=== PATIENT | female | born 1955 | race Caucasian/White ===

== ENCOUNTER 2024-09-30 20:07 | Inpatient (IN) ==
--- NOTE | 2024-09-30 20:16 | Emergency Department Note ---
Impression & Plan Syncope, Contusion of face, Fall ED Provider Note NAME: TOMMY HAYES AGE: 69 SEX: F : 1955 ARRIVES VIA: Ambulance INFORMANT: Patient, EMS ED PROVIDER(S): Twin Lara DO CHIEF COMPLAINT: Altered mental status HPI: The patient is a 69-year-old female who presented to the emergency department after an altered mental status. The patient was made a trauma alert. She was found to be with a head injury. She was covered in blood. Initially her significant other called 911 because he thought that she was in cardiac arrest. The patient was found on the floor in her home. It was an unwitnessed fall. It is difficult to obtain history as the patient is obtunded upon arrival. She reportedly does not take any blood thinners. ROS: See above HPI for pertinent positives & negatives. A total of 10 systems reviewed and were otherwise negative. PAST MEDICAL HISTORY: See Below PAST SURGICAL HISTORY: See Below FAMILY HISTORY: See Below SOCIAL HISTORY: See Below HOME MEDICATIONS: See Below ALLERGIES: See Below VITALS: See Below PHYSICAL EXAMINATION: GENERAL: The patient is awake to loud verbal commands. The patient follows commands intermittently and slowly. EYES: The conjunctivae are clear. The pupils are round and reactive. EARS, NOSE, MOUTH AND THROAT: The nose is without any evidence of any deformity. Periorbital ecchymosis was noted with small puncture wounds. No active bleeding was noted. NECK: The neck is nontender and supple. RESPIRATORY: Normal respiratory effort is noted there is no evidence of wheezing rhonchi or rales CARDIOVASCULAR: Regular rate and rhythm noted there no murmurs rubs or gallops normal S1 normal S2. GASTROINTESTINAL: The abdomen is soft. Abdomen is nontender. MUSCULOSKELETAL/EXTREMITIES: There is no evidence of gross deformity full range of motion is noted in the hips and shoulders. SKIN: There is no obvious evidence of any rash. There are no petechiae, pallor or cyanosis noted. NEUROLOGIC: Patient is awake to loud verbal commands. She answers questions intermittently. She is not oriented to place or situation. Strength is symmetric. MEDICAL DECISION MAKING: The patient is a 69-year-old female who presented to the emergency department after having a syncopal episode. History was somewhat limited as the patient arrived and she was somewhat confused. The patient had trauma noted to the left side of her face. I discussed the patient's laboratory and radiographic studies with her and her significant other. Further history was obtained from the significant other and he states that the patient has not been feeling well for the last few days. They recently returned from a trip. The patient had an episode of syncope where she fell striking the left side of her face. The patient was reevaluated multiple times. I discussed the patient's condition with the on-call [facility] hospitalist. They have agreed to evaluate the patient in the emergency department for further management and disposition. Triage Nursing notes reviewed. Prior medical records reviewed Vital Signs: reviewed and remarkable for no significant abnormalities Differential diagnosis: Fracture, dislocation, contusion, intra-abdominal, pneumothorax, intrathoracic, intracranial, neurologic, compartment syndrome, rhabdomyolysis, as well as other pathologies. ER treatment provided: See below Diagnostics interpreted by me: ECG: EKG was obtained in the emergency department. My interpretation is sinus bradycardia 59 bpm. PVCs were noted. Nonspecific ST depressions were also noted. This was compared to a tracing from July 08, 2021. The ectopy is new otherwise no changes noted. Cardiac Monitoring: An order was placed for continuous cardiac monitoring. The monitor shows a rate of 60 bpm with sinus rhythm. Laboratory studies: As stated above and show below. Imaging studies: See below. Radiographic imaging was reviewed by myself Consultation(s): I discussed this case with Dr. [facility] Past Med/Surg History Problem List (Updated 09/30/24 @ 22:07 by Twin Lara DO) Fall (Acute) Contusion of face (Acute) Syncope (Acute) Medical History Hypothyroidism Hyperlipidemia Family History Other Family history non-contributory Social History Smoking Status: Never smoker Feels Safe at Home: Yes Allergies Allergies Allergy/AdvReac Type Severity Reaction Status Date / Time No Known Allergies Allergy Unverified 07/08/21 20:10 Home Meds Home Medications Medication Instructions Recorded Confirmed atorvastatin 20 mg tablet 20 mg PO DAILY 07/08/21 09/30/24 citalopram 40 mg tablet 40 mg PO DAILY 07/08/21 09/30/24 levothyroxine 50 mcg tablet 50 mcg PO DAILY 07/08/21 09/30/24 (Synthroid) Results & Data (ED) Vital Signs Vital Signs - 24 hr 09/30/24 20:04 09/30/24 20:04 09/30/24 20:04 Temperature 36.6 C Temperature Source Oral Pulse Rate 61 Pulse Rate from SpO2 Sensor Respiratory Rate 16 Respiratory Effort / Characteristics Non-Labored Non-Labored Respiratory Depth Normal Normal Blood Pressure 114/48 L Blood Pressure Mean 70 Pulse Oximetry 98 Oxygen Delivery Method Room Air Room Air Oxygen Flow Rate Sepsis Recent Fever Within 48 Hours No Sepsis New/Unexplained Change in Mental Status No Sepsis Action Taken by Nursing No Action Required 09/30/24 20:04 09/30/24 20:11 09/30/24 20:11 Temperature 36.6 C Temperature Source Pulse Rate 58 L 61 Pulse Rate from SpO2 Sensor Respiratory Rate 16 Respiratory Effort / Characteristics Respiratory Depth Blood Pressure 114/48 L 114/48 L Blood Pressure Mean 73 Pulse Oximetry 98 Oxygen Delivery Method Room Air Oxygen Flow Rate 0 Sepsis Recent Fever Within 48 Hours Sepsis New/Unexplained Change in Mental Status Sepsis Action Taken by Nursing 09/30/24 20:11 09/30/24 20:12 09/30/24 20:12 Temperature Temperature Source Pulse Rate 60 Pulse Rate from SpO2 Sensor 60 Respiratory Rate 20 Respiratory Effort / Characteristics Respiratory Depth Blood Pressure 114/48 L Blood Pressure Mean 73 Pulse Oximetry 99 94 Oxygen Delivery Method Room Air Oxygen Flow Rate Sepsis Recent Fever Within 48 Hours Sepsis New/Unexplained Change in Mental Status Sepsis Action Taken by Nursing 09/30/24 20:21 09/30/24 20:24 09/30/24 20:46 Temperature Temperature Source Pulse Rate 59 L 57 L Pulse Rate from SpO2 Sensor 55 L 57 L Respiratory Rate 15 20 Respiratory Effort / Characteristics Respiratory Depth Blood Pressure 143/67 H Blood Pressure Mean 90 Pulse Oximetry 98 99 Oxygen Delivery Method Oxygen Flow Rate Sepsis Recent Fever Within 48 Hours Sepsis New/Unexplained Change in Mental Status Sepsis Action Taken by Nursing 09/30/24 21:00 09/30/24 21:00 09/30/24 21:06 Temperature Temperature Source Pulse Rate 57 L Pulse Rate from SpO2 Sensor 59 L Respiratory Rate 22 Respiratory Effort / Characteristics Respiratory Depth Blood Pressure 129/56 L 129/56 L Blood Pressure Mean 88 88 Pulse Oximetry 97 Oxygen Delivery Method Oxygen Flow Rate Sepsis Recent Fever Within 48 Hours Sepsis New/Unexplained Change in Mental Status Sepsis Action Taken by Nursing 09/30/24 21:18 09/30/24 21:21 09/30/24 21:24 Temperature Temperature Source Pulse Rate 57 L 53 L 51 L Pulse Rate from SpO2 Sensor 56 L 53 L 51 L Respiratory Rate 17 21 19 Respiratory Effort / Characteristics Respiratory Depth Blood Pressure Blood Pressure Mean Pulse Oximetry 98 97 97 Oxygen Delivery Method Oxygen Flow Rate Sepsis Recent Fever Within 48 Hours Sepsis New/Unexplained Change in Mental Status Sepsis Action Taken by Nursing 09/30/24 21:30 09/30/24 21:30 09/30/24 21:45 Temperature Temperature Source Pulse Rate 55 L Pulse Rate from SpO2 Sensor 55 L Respiratory Rate 21 Respiratory Effort / Characteristics Respiratory Depth Blood Pressure 131/66 131/66 Blood Pressure Mean 88 88 Pulse Oximetry 96 Oxygen Delivery Method Oxygen Flow Rate Sepsis Recent Fever Within 48 Hours Sepsis New/Unexplained Change in Mental Status Sepsis Action Taken by Nursing 09/30/24 21:51 09/30/24 22:00 09/30/24 22:00 Temperature Temperature Source Pulse Rate 56 L 56 L Pulse Rate from SpO2 Sensor 56 L 56 L Respiratory Rate 18 21 Respiratory Effort / Characteristics Non-Labored Respiratory Depth Normal Blood Pressure Blood Pressure Mean Pulse Oximetry 96 92 Oxygen Delivery Method Oxygen Flow Rate Sepsis Recent Fever Within 48 Hours Sepsis New/Unexplained Change in Mental Status Sepsis Action Taken by Nursing 09/30/24 22:01 09/30/24 22:01 09/30/24 22:12 Temperature Temperature Source Pulse Rate 60 Pulse Rate from SpO2 Sensor 58 L Respiratory Rate 19 Respiratory Effort / Characteristics Respiratory Depth Blood Pressure 101/59 L 101/59 L Blood Pressure Mean 84 84 Pulse Oximetry 95 Oxygen Delivery Method Oxygen Flow Rate Sepsis Recent Fever Within 48 Hours Sepsis New/Unexplained Change in Mental Status Sepsis Action Taken by Custodial Medications Current Medication List: was personally reviewed by me Laboratory Data Attestation: I reviewed the patient's lab results. 09/30/24 20:14 09/30/24 20:14 Lab Results 09/30/24 09/30/24 09/30/24 Range/Units 20:14 20:17 20:18 WBC 5.39 (4.8-10.8) K/ul RBC 3.66 L (4.20-5.40) M/uL Hgb 11.0 L (12.0-16.0) g/dl POC Hgb 10.5 L (12.0-16.0) g/dl Hct 32.9 L (37.0-47.0) % POC Hct 31 L (37-47) % MCV 89.9 (80.0-100.0) fL MCH 30.1 (25.0-34.0) pg MCHC 33.4 (32.0-36.0) g/dL RDW Std Deviation 41.8 (36.4-46.3) fL RDW Coeff of Jazmin 12.7 (11.5-14.5) % Plt Count 167 (130-400) K/uL MPV 10.7 (9.4-12.4) fL Immature Gran % (Auto) 0.4 % Neut % (Auto) 59.7 % Lymph % (Auto) 27.8 % [place] % (Auto) 10.0 % Eos % (Auto) 1.7 % Baso % (Auto) 0.4 % Neut # (Auto) 3.22 (1.40-6.50) K/uL Lymph # (Auto) 1.50 (1.20-3.40) K/uL [place] # (Auto) 0.54 (0.11-0.59) K/uL Eos # (Auto) 0.09 (0.00-0.50) K/uL Baso # (Auto) 0.02 (0.00-0.20) K/uL Immature Gran # (Auto) 0.02 (0.01-0.20) K/uL PT 10.4 (9.0-12.0) Seconds INR 1.0 (0.9-1.1) APTT 23 (21-31) Seconds PTT Ratio 0.9 POC Sodium 137 (135-144) mmol/L Sodium 136 (136-145) mmol/L POC Potassium 3.4 (3.3-5.0) mmol/L Potassium 3.5 (3.5-5.1) mmol/L POC Chloride 104 (101-112) mmol/L Chloride 105 (98-107) mmol/L Carbon Dioxide 25 (21-32) mmol/L POC Total CO2 21 L (24-31) mmol/L Anion Gap 6 (3-11) POC Anion Gap 17.0 (16-25) mmol/L POC BUN 15 (7-18) mg/dl BUN 18 (6-23) mg/dl Creatinine 1.08 (0.6-1.2) mg/dl POC Creatinine 1.1 (0.6-1.3) mg/dl Est Cr Clr Drug Dosing 41.9 ml/min eGFR 55.26 BUN/Creatinine Ratio 16.7 (10-20) Glucose 141 H (70-99(Fasting)) mg/dl POC Glucose (other) 135 H (70-99) mg/dl Calcium 9.1 (8.6-10.3) mg/dl POC Ioniz Calcium Rip 1.18 (1.12-1.32) mmol/l Total Bilirubin 0.6 (0.2-1.0) mg/dl AST 46 H (13-39) U/L ALT 39 (7-52) U/L Alkaline Phosphatase 45 (34-104) U/L Total Creatine Kinase 221 H (26-192) U/L Troponin I High Sens < 2.3 (0-14) pg/ml Total Protein 6.2 (6.0-8.3) gm/dl Albumin 3.9 (3.4-5.0) gm/dl Globulin 2.3 L (2.5-4.0) gm/dl Albumin/Globulin Ratio 1.7 (0.9-2) Lipase 17 (11-82) U/L Ethyl Alcohol mg/dL < 10.0 (<10.0) mg/dl Blood Type O Positive Antibody Screen NEGATIVE Administered Medications Discontinued Medications Ioversol (Optiray 320 100ml) 93 ml IV ONCE ONE Stop: 09/30/24 20:36 Last Admin: 09/30/24 20:35 Dose: 93 ml Documented By: OLIVIER Ondansetron HCl (Ondansetron Inj 2 Mg/Ml 2 Ml Vial) 4 mg IV NOW STA Stop: 09/30/24 20:13 Last Admin: 09/30/24 20:27 Dose: 4 mg Documented By: PITO Imaging Data Attestation: I personally reviewed and interpreted this imaging study as follows: My Impression: CT of the brain was obtained in the emergency department. My interpretation is no definite intracranial hemorrhage or mass effect, final report below. 1 view chest x-ray was obtained in the emergency department. My interpretation is no free air or definite infiltrate, final report below. Radiologist's Impression: Abdomen/Pelvis CT 09/30/24 20:12 Exam(s): CT ABDOMEN + PELVIS With Contrast IV Amt: 93 cc opti 320 EXAM: CT Abdomen and Pelvis With Intravenous Contrast CLINICAL HISTORY: Reason for exam: Trauma. TECHNIQUE: Axial computed tomography images of the abdomen and pelvis with intravenous contrast. CTDI is 14.22 mGy and DLP is 736.72 mGy-cm. Automated exposure control was utilized for the study. A dose lowering technique was utilized adhering to the principles of ALARA. CONTRAST: Patient received 93 cc opti 320 of IV contrast COMPARISON: 07/08/2021 FINDINGS: ABDOMEN: Liver: Unremarkable. Gallbladder and bile ducts: Unremarkable. Pancreas: Unremarkable. Spleen: Unremarkable. Adrenals: Unremarkable. Kidneys and ureters: Unremarkable. No obstructing stones. No hydronephrosis. Stomach and bowel: Excess colonic stool burden. PELVIS: Appendix: No findings to suggest acute appendicitis. Bladder: Unremarkable. Reproductive: Unremarkable as visualized. ABDOMEN and PELVIS: Intraperitoneal space: Unremarkable. No free air. No significant fluid collection. Bones/joints: No acute fracture. Soft tissues: Unremarkable. Vasculature: Unremarkable. Lymph nodes: Unremarkable. IMPRESSION: 1. No traumatic injury. 2. Excess colonic stool burden. Correlate for constipation. Electronically signed by: Carson Cristobal MD 09/30/24 21:[address] 09/30/24 20:12 Exam(s): CT C SPINE EXAM: CT Cervical Spine Without Intravenous Contrast CLINICAL HISTORY: Reason for exam: Trauma. TECHNIQUE: Axial computed tomography images of the cervical spine without intravenous contrast. CTDI is 24.86 mGy and DLP is 488.08 mGy-cm. Automated exposure control was utilized for the study. A dose lowering technique was utilized adhering to the principles of ALARA. COMPARISON: No relevant prior studies available. FINDINGS: Vertebrae: No acute fracture. No malalignment. Soft tissues: Unremarkable. IMPRESSION: No fracture within the cervical spine. Electronically signed by: Carson Cristobal MD 09/30/24 21:[address] 09/30/24 20:12 Exam(s): CT CHEST With Contrast IV Amt: 93 cc opti 320 EXAM: CT Chest With Intravenous Contrast CLINICAL HISTORY: Reason for exam: Trauma. TECHNIQUE: Axial computed tomography images of the chest with intravenous contrast. CTDI is 10.85 mGy and DLP is 361.26 mGy-cm. Automated exposure control was utilized for the study. A dose lowering technique was utilized adhering to the principles of ALARA. CONTRAST: Patient received 93 cc opti 320 of IV contrast COMPARISON: No relevant prior studies available. FINDINGS: Lungs: No pulmonary contusion. Pleural space: No pleural effusion or pneumothorax. Heart: Unremarkable. Bones/joints: No acute findings. Soft tissues: Unremarkable. Vasculature: No aortic dissection. Lymph nodes: Unremarkable. IMPRESSION: No acute findings in the chest. Electronically signed by: Carson Cristobal MD 09/30/24 21:24 PM Chest X-Ray 09/30/24 20:12 Exam(s): XR CXR 1 VIEW EXAM: XR Chest, 1 View CLINICAL HISTORY: Reason for exam: Trauma. TECHNIQUE: Frontal view of the chest. COMPARISON: 07/08/2021 FINDINGS: Lungs: No consolidation. No overt edema. Pleural space: No pleural effusion. No pneumothorax. Heart: Unremarkable. No cardiomegaly. IMPRESSION: No acute cardiopulmonary abnormality. Electronically signed by: Carson Cristobal MD 09/30/24 21:[address] 09/30/24 20:12 Exam(s): CT HEAD Without Contrast EXAM: CT Head Without Intravenous Contrast CLINICAL HISTORY: Reason for exam: trauma. TECHNIQUE: Axial computed tomography images of the head/brain without intravenous contrast. CTDI is 34.77 mGy and DLP is 624.41 mGy-cm. Automated exposure control was utilized for the study. A dose lowering technique was utilized adhering to the principles of ALARA. COMPARISON: No relevant prior studies available. FINDINGS: Brain: No hemorrhage, extra-axial fluid collection, mass effect, or edema. Ventricles: Unremarkable. Bones/joints: Unremarkable. No fracture. Soft tissues: Unremarkable. Sinuses: No acute sinusitis. Mastoid air cells: Unremarkable as visualized. IMPRESSION: 1. No acute intracranial abnormality. Electronically signed by: Carson Cristobal MD 09/30/24 21:33 PM Discharge Plan Visit Data Chief Complaint: Trauma Stated Complaint: FOUND ON FLOOR, UNRESPONSIVE, CONFUSED, VOMITING ED Provider: Twin Lara Discharge Problem: Syncope, Contusion of face, Fall Patient Disposition: Being Evaluated by Hospitalist Forms Stand Alone Forms: [facility] Prescriptions Prescriptions: No Action atorvastatin 20 mg tablet 20 mg PO DAILY citalopram 40 mg tablet 40 mg PO DAILY levothyroxine [Synthroid] 50 mcg tablet 50 mcg PO DAILY Referrals Referrals: Jen Luna MD [Primary Care Provider] -
[2024-09-30] MEDS: ONDANSETRON INJ 2 MG/ML 2 ML VIAL IV STA (20:27)
[2024-09-30 20:30] LABS: iSTAT Creatinine 1.1 mg/dl (0.6-1.3); iSTAT Hemoglobin 10.5 g/dl (12.0-16.0); iSTAT Ionized Calcium 1.18 mmol/l (1.12-1.32); iSTAT Potassium 3.4 mmol/L (3.3-5.0)
[2024-09-30 20:35] LABS: Basophils # (auto) 0.02 K/uL (0.00-0.20); Basophils % (auto) 0.4 %; Eosinophils # (auto) 0.09 K/uL (0.00-0.50); Eosinophils % (auto) 1.7 %; Hematocrit (blood only) 32.9 % (37.0-47.0); Immature Granulocytes # (auto) 0.02 K/uL (0.01-0.20); Immature Granulocytes % (auto) 0.4 %; Lymphocytes % (auto) 27.8 %; Mean Corpuscular Hemoglobin 30.1 pg (25.0-34.0); Mean Corpuscular Hgb Conc 33.4 g/dL (32.0-36.0); Mean Corpuscular Volume 89.9 fL (80.0-100.0); Mean Platelet Volume 10.7 fL (9.4-12.4); Monocytes # (auto) 0.54 K/uL (0.11-0.59); Neutrophils # (auto) 3.22 K/uL (1.40-6.50); Neutrophils % (auto) 59.7 %; Platelet Count 167 K/uL (130-400); RDW Coefficient of Variation 12.7 % (11.5-14.5); RDW Standard Deviation 41.8 fL (36.4-46.3); Red Blood Count 3.66 M/uL (4.20-5.40); White Blood Count 5.39 K/ul (4.8-10.8)
[2024-09-30] MEDS: OPTIRAY 320 100ml IV ONE (20:35)
[2024-09-30 20:52] LABS: Alanine Aminotransferase 39 U/L (7-52); Albumin Globulin Ratio 1.7 (0.9-2); Albumin Level 3.9 gm/dl (3.4-5.0); Alkaline Phosphatase 45 U/L (34-104); Anion Gap 6 (3-11); Aspartate Aminotransferase 46 U/L (13-39); BUN Creatinine Ratio 16.7 (10-20); Bilirubin,Total 0.6 mg/dl (0.2-1.0); Blood Urea Nitrogen 18 mg/dl (6-23); Calcium 9.1 mg/dl (8.6-10.3); Carbon Dioxide 25 mmol/L (21-32); Chloride 105 mmol/L (98-107); Creatine Kinase 221 U/L (26-192); Creatinine Clr Calc Pharmacy 41.9 ml/min; Globulin 2.3 gm/dl (2.5-4.0); Glucose 141 mg/dl (70-99(Fasting)); Lipase 17 U/L (11-82); Potassium 3.5 mmol/L (3.5-5.1); Sodium 136 mmol/L (136-145); Total Protein 6.2 gm/dl (6.0-8.3)
[2024-09-30 20:57] LABS: Troponin I High Sensitivity < 2.3 pg/ml (0-14)
[2024-09-30 21:02] LABS: Partial Thromboplastin Ratio 0.9; Partial Thromboplastin Time 23 Seconds (21-31); Prothrombin Time 10.4 Seconds (9.0-12.0)
--- NOTE | 2024-09-30 21:02 | XRay Report ---
Exam(s): XR CXR 1 VIEW EXAM: XR Chest, 1 View CLINICAL HISTORY: Reason for exam: Trauma. TECHNIQUE: Frontal view of the chest. COMPARISON: 07/08/2021 FINDINGS: Lungs: No consolidation. No overt edema. Pleural space: No pleural effusion. No pneumothorax. Heart: Unremarkable. No cardiomegaly. IMPRESSION: No acute cardiopulmonary abnormality. Electronically signed by: Carson Cristobal MD 09/30/24 21:01 PM
--- NOTE | 2024-09-30 21:24 | CT Scan Report ---
Exam(s): CT C SPINE EXAM: CT Cervical Spine Without Intravenous Contrast CLINICAL HISTORY: Reason for exam: Trauma. TECHNIQUE: Axial computed tomography images of the cervical spine without intravenous contrast. CTDI is 24.86 mGy and DLP is 488.08 mGy-cm. Automated exposure control was utilized for the study. A dose lowering technique was utilized adhering to the principles of ALARA. COMPARISON: No relevant prior studies available. FINDINGS: Vertebrae: No acute fracture. No malalignment. Soft tissues: Unremarkable. IMPRESSION: No fracture within the cervical spine. Electronically signed by: Carson Cristobal MD 09/30/24 21:22 PM
--- NOTE | 2024-09-30 21:25 | CT Scan Report ---
Exam(s): CT CHEST With Contrast IV Amt: 93 cc opti 320 EXAM: CT Chest With Intravenous Contrast CLINICAL HISTORY: Reason for exam: Trauma. TECHNIQUE: Axial computed tomography images of the chest with intravenous contrast. CTDI is 10.85 mGy and DLP is 361.26 mGy-cm. Automated exposure control was utilized for the study. A dose lowering technique was utilized adhering to the principles of ALARA. CONTRAST: Patient received 93 cc opti 320 of IV contrast COMPARISON: No relevant prior studies available. FINDINGS: Lungs: No pulmonary contusion. Pleural space: No pleural effusion or pneumothorax. Heart: Unremarkable. Bones/joints: No acute findings. Soft tissues: Unremarkable. Vasculature: No aortic dissection. Lymph nodes: Unremarkable. IMPRESSION: No acute findings in the chest. Electronically signed by: Carson Cristobal MD 09/30/24 21:24 PM
--- NOTE | 2024-09-30 21:35 | CT Scan Report ---
Exam(s): CT HEAD Without Contrast EXAM: CT Head Without Intravenous Contrast CLINICAL HISTORY: Reason for exam: trauma. TECHNIQUE: Axial computed tomography images of the head/brain without intravenous contrast. CTDI is 34.77 mGy and DLP is 624.41 mGy-cm. Automated exposure control was utilized for the study. A dose lowering technique was utilized adhering to the principles of ALARA. COMPARISON: No relevant prior studies available. FINDINGS: Brain: No hemorrhage, extra-axial fluid collection, mass effect, or edema. Ventricles: Unremarkable. Bones/joints: Unremarkable. No fracture. Soft tissues: Unremarkable. Sinuses: No acute sinusitis. Mastoid air cells: Unremarkable as visualized. IMPRESSION: 1. No acute intracranial abnormality. Electronically signed by: Carson Cristobal MD 09/30/24 21:33 PM
--- NOTE | 2024-09-30 21:36 | CT Scan Report ---
Exam(s): CT ABDOMEN + PELVIS With Contrast IV Amt: 93 cc opti 320 EXAM: CT Abdomen and Pelvis With Intravenous Contrast CLINICAL HISTORY: Reason for exam: Trauma. TECHNIQUE: Axial computed tomography images of the abdomen and pelvis with intravenous contrast. CTDI is 14.22 mGy and DLP is 736.72 mGy-cm. Automated exposure control was utilized for the study. A dose lowering technique was utilized adhering to the principles of ALARA. CONTRAST: Patient received 93 cc opti 320 of IV contrast COMPARISON: 07/08/2021 FINDINGS: ABDOMEN: Liver: Unremarkable. Gallbladder and bile ducts: Unremarkable. Pancreas: Unremarkable. Spleen: Unremarkable. Adrenals: Unremarkable. Kidneys and ureters: Unremarkable. No obstructing stones. No hydronephrosis. Stomach and bowel: Excess colonic stool burden. PELVIS: Appendix: No findings to suggest acute appendicitis. Bladder: Unremarkable. Reproductive: Unremarkable as visualized. ABDOMEN and PELVIS: Intraperitoneal space: Unremarkable. No free air. No significant fluid collection. Bones/joints: No acute fracture. Soft tissues: Unremarkable. Vasculature: Unremarkable. Lymph nodes: Unremarkable. IMPRESSION: 1. No traumatic injury. 2. Excess colonic stool burden. Correlate for constipation. Electronically signed by: Carson Cristobal MD 09/30/24 21:35 PM
--- NOTE | 2024-10-01 00:07 | History & Physical Report ---
Date of Service September 30, 2024 Assessment & Plan (1) Syncope: Plan: 69-year-old female with past medical history significant for hypothyroidism, osteoporosis, depression, hyperlipidemia presents with syncope. Patient says she [place] morning. Since Monday evening having cough and sore throat. Today morning she had a fever. In the evening when she was in the kitchen she was feeling sick to her stomach. [place] dizzy. Still was holding the counter. Then she passed out and next thing she remembers being in the ambulance but not totally awake until in the ER. As per the ER initially she was difficult to get history as she was obtunded. There was trauma to the left side of the face. Some blood seen in the left side of the head. Current alert and oriented and able to give her history. Currently denies any headache. Vision is okay. Currently no nausea. Denies any chest pain or shortness of breath. No abdominal pain. Denies any diarrhea or constipation. Micturating okay. Later in the ER code purple was called as patient passed out while she was micturating at bedside commode. Seems she passed out for 20 to 30 seconds. She is back in bed now. Left facial laceration started to bleed and stopped after pressure holding. Currently vitals are okay and denies any chest pain or nausea. Syncope Came with syncope and fall and laceration to the left side of the face Somewhat obtunded when came to the ER. Later was alert and oriented But then she had another syncopal episode lasting 20 to 30 seconds while she was on the commode and also had vomiting. Currently hemodynamics are okay Troponin okay CT head no acute findings CT chest with IV contrast no acute findings CT cervical spine no acute findings CT abdomen pelvis no traumatic injury. Stool burden. UA is negative Respiratory BioFire pending Will continue with the fluids Check orthostatics in a.m. Follow repeat labs and cardiac enzymes Echo and EEG in a.m. Telemetry Cardiology consult Hypothyroidism On Synthyroid Will follow TSH Hyperlipidemia On statin Depression Will hold citalopram for now DVT prophylaxis SCDs Disposition Telemetry Full code. Addendum: Flu came back positive and stared on Tamiflu Later again code purple was called as patient was on the floor with diarrhea.She is alert and seemed somewhat confused.Able to move her extremities, no facial droop or dysarthria and obeying simple commands. Repeat ct head, and cervical spine no acute findings. Ct chest showed :.Multiple clusters of tiny centrilobular nodular opacities with ground-glass attenuation are noted involving anterior segment of right upper lobe, right middle lobe and right lower lobes with branching pattern.- possibility of infective etiology/bronchiolitis. 2. No obvious trauma related abnormality is seen. Ordered mrsa swab. placed on Zosyn for possible aspiration.. History of Present Illness Chief Complaint: Syncope Primary Care Provider: Jen Luna MD 69-year-old female with past medical history significant for hypothyroidism, osteoporosis, depression, hyperlipidemia presents with syncope. Patient says she came from [place]. Since Monday evening having cough and sore throat. Today morning she had a fever. In the evening when she was in the kitchen she was feeling sick to her stomach. [place] dizzy. Was holding the counter. Then she passed out and next thing she remembers being in the ambulance but not totally awake until in the ER. As per the ER initially she was difficult to get history as she was obtunded. There was trauma to the left side of the face. Some blood seen in the left side of the head. Current alert and oriented and able to give her history. Currently denies any headache. Vision is okay. Currently no nausea. Denies any chest pain or shortness of breath. No abdominal pain. Denies any diarrhea or constipation. Micturating okay. Later in the ER code purple was called as patient passed out while she was micturating at bedside commode. Seems she passed out for 20 to 30 seconds. She is back in bed now. Left facial laceration started to bleed and stopped after pressure holding. Currently vitals are okay and denies any chest pain or nausea. Past medical history. As mentioned above. Past surgical history. Colonoscopy. Dilatation curettage. Left jaw surgery. Right shoulder arthroscopy. Social history. . Quit smoking in 1971. Alcohol wine on occasion. No drug use. Family history. Son has allergies. Asthma. Psoriasis. Stroke. Mother has osteoporosis. Thyroid disorder. Mental disorder. Father has Parkinson's disease. Maternal grandfather had cancer. Allergies Allergy/AdvReac Type Severity Reaction Status Date / Time No Known Allergies Allergy Unverified 07/08/21 20:10 Home Medications Medication Instructions Recorded Confirmed Type atorvastatin 20 mg tablet 20 mg PO DAILY 07/08/21 09/30/24 History citalopram 40 mg tablet 40 mg PO DAILY 07/08/21 09/30/24 History levothyroxine 50 mcg tablet 50 mcg PO DAILY 07/08/21 09/30/24 History (Synthroid) Past Med/Surg History Problem List (Updated 09/30/24 @ 22:07 by Twin Lara DO) Fall (Acute) Contusion of face (Acute) Syncope (Acute) Medical History Hypothyroidism Hyperlipidemia Family History Other Family history non-contributory Social History Smoking Status: Never smoker Hx Alcohol Use: Yes Alcohol type: beer Hx Substance Use: No Preferred Language: [place]ian Communication Ability: Effective Clinical Business Analyst Required: No Beliefs That Will Affect Care: None Current Living Situation: Spouse Other Information That Helps Us Care for You: No Feels Safe at Home: Yes Safety Concerns: Feels Safe At This Time Review of Systems Review of Systems: All systems reviewed & are unremarkable except as noted in HPI & below Physical Exam 2 Physical Exam: General-alert and awake. Head- laceration seen on left sie of face close to ice about 1cm long Eyes- PERRL. ENT- oropharynx clear Neck- supple, no JVD. Lungs- clear to auscultation no wheezing or crackles Heart- regular rate and rhythm; no murmur, no gallop. Abdomen- normal bowel sounds, soft, nontender, no distension Extremities- no pretibial edema, no erythema seen. Neuro- alert, oriented PERRL, no facial palsy; no dysarthria; motor 5/5 bilaterally; co ordination of movements normal Results & Data Results & Data Vital Signs (Past 12 Hours) Vital Signs Temp Pulse Resp BP Pulse Ox O2 Del Method O2 Flow Rate 09/30/24 23:00 61 19 113/57 L 93 Room Air 09/30/24 22:33 63 16 96 09/30/24 22:30 110/53 L 09/30/24 22:30 110/53 L 09/30/24 22:12 60 19 95 09/30/24 22:01 101/59 L 09/30/24 22:01 101/59 L 09/30/24 22:00 56 L 21 92 09/30/24 21:51 56 L 18 96 09/30/24 21:45 55 L 21 96 09/30/24 21:30 131/66 09/30/24 21:30 131/66 09/30/24 21:24 51 L 19 97 09/30/24 21:21 53 L 21 97 09/30/24 21:18 57 L 17 98 09/30/24 21:06 57 L 22 97 09/30/24 21:00 129/56 L 09/30/24 21:00 129/56 L 09/30/24 20:46 143/67 H 09/30/24 20:24 57 L 20 99 09/30/24 20:21 59 L 15 98 09/30/24 20:12 60 20 94 09/30/24 20:12 99 Room Air 09/30/24 20:11 114/48 L 09/30/24 20:11 114/48 L 09/30/24 20:11 61 09/30/24 20:04 36.6 C 58 L 16 114/48 L 98 Room Air 0 09/30/24 20:04 Room Air 09/30/24 20:04 36.6 C 61 16 114/48 L 98 Room Air Diagnostic Findings Laboratory Results WBC 5.39 K/ul (4.8-10.8) 09/30/24 20:14 RBC 3.66 M/uL (4.20-5.40) L 09/30/24 20:14 Hgb 11.0 g/dl (12.0-16.0) L 09/30/24 20:14 POC Hgb 10.5 g/dl (12.0-16.0) L 09/30/24 20:17 Hct 32.9 % (37.0-47.0) L 09/30/24 20:14 POC Hct 31 % (37-47) L 09/30/24 20:17 MCV 89.9 fL (80.0-100.0) 09/30/24 20:14 MCH 30.1 pg (25.0-34.0) 09/30/24 20:14 MCHC 33.4 g/dL (32.0-36.0) 09/30/24 20:14 RDW Std Deviation 41.8 fL (36.4-46.3) 09/30/24 20:14 RDW Coeff of Jazmin 12.7 % (11.5-14.5) 09/30/24 20:14 Plt Count 167 K/uL (130-400) 09/30/24 20:14 MPV 10.7 fL (9.4-12.4) 09/30/24 20:14 Immature Gran % (Auto) 0.4 % 09/30/24 20:14 Neut % (Auto) 59.7 % 09/30/24 20:14 Lymph % (Auto) 27.8 % 09/30/24 20:14 [place] % (Auto) 10.0 % 09/30/24 20:14 Eos % (Auto) 1.7 % 09/30/24 20:14 Baso % (Auto) 0.4 % 09/30/24 20:14 Neut # (Auto) 3.22 K/uL (1.40-6.50) 09/30/24 20:14 Lymph # (Auto) 1.50 K/uL (1.20-3.40) 09/30/24 20:14 [place] # (Auto) 0.54 K/uL (0.11-0.59) 09/30/24 20:14 Eos # (Auto) 0.09 K/uL (0.00-0.50) 09/30/24 20:14 Baso # (Auto) 0.02 K/uL (0.00-0.20) 09/30/24 20:14 Immature Gran # (Auto) 0.02 K/uL (0.01-0.20) 09/30/24 20:14 PT 10.4 Seconds (9.0-12.0) 09/30/24 20:14 INR 1.0 (0.9-1.1) 09/30/24 20:14 APTT 23 Seconds (21-31) 09/30/24 20:14 PTT Ratio 0.9 09/30/24 20:14 POC Sodium 137 mmol/L (135-144) 09/30/24 20:17 Sodium 136 mmol/L (136-145) 09/30/24 20:14 POC Potassium 3.4 mmol/L (3.3-5.0) 09/30/24 20:17 Potassium 3.5 mmol/L (3.5-5.1) 09/30/24 20:14 POC Chloride 104 mmol/L (101-112) 09/30/24 20:17 Chloride 105 mmol/L (98-107) 09/30/24 20:14 Carbon Dioxide 25 mmol/L (21-32) 09/30/24 20:14 POC Total CO2 21 mmol/L (24-31) L 09/30/24 20:17 Anion Gap 6 (3-11) 09/30/24 20:14 POC Anion Gap 17.0 mmol/L (16-25) 09/30/24 20:17 POC BUN 15 mg/dl (7-18) 09/30/24 20:17 BUN 18 mg/dl (6-23) 09/30/24 20:14 Creatinine 1.08 mg/dl (0.6-1.2) 09/30/24 20:14 POC Creatinine 1.1 mg/dl (0.6-1.3) 09/30/24 20:17 Est Cr Clr Drug Dosing 41.9 ml/min 09/30/24 20:14 eGFR 55.26 09/30/24 20:14 BUN/Creatinine Ratio 16.7 (10-20) 09/30/24 20:14 Glucose 141 mg/dl (70-99(Fasting)) H 09/30/24 20:14 POC Glucose (other) 135 mg/dl (70-99) H 09/30/24 20:17 Calcium 9.1 mg/dl (8.6-10.3) 09/30/24 20:14 POC Ioniz Calcium Rip 1.18 mmol/l (1.12-1.32) 09/30/24 20:17 Total Bilirubin 0.6 mg/dl (0.2-1.0) 09/30/24 20:14 AST 46 U/L (13-39) H 09/30/24 20:14 ALT 39 U/L (7-52) 09/30/24 20:14 Alkaline Phosphatase 45 U/L (34-104) 09/30/24 20:14 Total Creatine Kinase 221 U/L (26-192) H 09/30/24 20:14 Troponin I High Sens < 2.3 pg/ml (0-14) 09/30/24 20:14 Total Protein 6.2 gm/dl (6.0-8.3) 09/30/24 20:14 Albumin 3.9 gm/dl (3.4-5.0) 09/30/24 20:14 Globulin 2.3 gm/dl (2.5-4.0) L 09/30/24 20:14 Albumin/Globulin Ratio 1.7 (0.9-2) 09/30/24 20:14 Lipase 17 U/L (11-82) 09/30/24 20:14 Urine Color Yellow 10/01/24 00:05 Urine Appearance Clear (Clear) 10/01/24 00:05 Urine pH 5.0 (4.5-7.5) 10/01/24 00:05 Ur Specific [place] > 1.045 (1.000-1.030) H 10/01/24 00:05 Urine Protein 1+ (Negative) H 10/01/24 00:05 Urine Glucose (UA) Negative (Negative) 10/01/24 00:05 Urine Ketones 2+ (Negative) H 10/01/24 00:05 Urine Blood Negative (Negative) 10/01/24 00:05 Urine Nitrite Negative (Negative) 10/01/24 00:05 Urine Bilirubin Negative (Negative) 10/01/24 00:05 Urine Urobilinogen Negative (Negative) 10/01/24 00:05 Ur Leukocyte Esterase Negative (Negative) 10/01/24 00:05 Urine WBC (Auto) 0-5 /hpf (0-5) 10/01/24 00:05 Urine RBC (Auto) 0-2 /hpf (0-2) 10/01/24 00:05 U Hyaline Cast (Auto) 0-2 /lpf (0-2) 10/01/24 00:05 U Epithel Cells (Auto) 0-2 /hpf (0-2) 10/01/24 00:05 Urine Bacteria (Auto) None Seen (None Seen) 10/01/24 00:05 Ethyl Alcohol mg/dL < 10.0 mg/dl (<10.0) 09/30/24 20:14 Blood Type O Positive 09/30/24 20:18 Antibody Screen NEGATIVE 09/30/24 20:18 Impressions Abdomen/Pelvis CT 09/30/24 20:12 Exam(s): CT ABDOMEN + PELVIS With Contrast IV Amt: 93 cc opti 320 EXAM: CT Abdomen and Pelvis With Intravenous Contrast CLINICAL HISTORY: Reason for exam: Trauma. TECHNIQUE: Axial computed tomography images of the abdomen and pelvis with intravenous contrast. CTDI is 14.22 mGy and DLP is 736.72 mGy-cm. Automated exposure control was utilized for the study. A dose lowering technique was utilized adhering to the principles of ALARA. CONTRAST: Patient received 93 cc opti 320 of IV contrast COMPARISON: 07/08/2021 FINDINGS: ABDOMEN: Liver: Unremarkable. Gallbladder and bile ducts: Unremarkable. Pancreas: Unremarkable. Spleen: Unremarkable. Adrenals: Unremarkable. Kidneys and ureters: Unremarkable. No obstructing stones. No hydronephrosis. Stomach and bowel: Excess colonic stool burden. PELVIS: Appendix: No findings to suggest acute appendicitis. Bladder: Unremarkable. Reproductive: Unremarkable as visualized. ABDOMEN and PELVIS: Intraperitoneal space: Unremarkable. No free air. No significant fluid collection. Bones/joints: No acute fracture. Soft tissues: Unremarkable. Vasculature: Unremarkable. Lymph nodes: Unremarkable. IMPRESSION: 1. No traumatic injury. 2. Excess colonic stool burden. Correlate for constipation. Electronically signed by: Carson Cristobal MD 09/30/24 21:[address] 09/30/24 20:12 Exam(s): CT C SPINE EXAM: CT Cervical Spine Without Intravenous Contrast CLINICAL HISTORY: Reason for exam: Trauma. TECHNIQUE: Axial computed tomography images of the cervical spine without intravenous contrast. CTDI is 24.86 mGy and DLP is 488.08 mGy-cm. Automated exposure control was utilized for the study. A dose lowering technique was utilized adhering to the principles of ALARA. COMPARISON: No relevant prior studies available. FINDINGS: Vertebrae: No acute fracture. No malalignment. Soft tissues: Unremarkable. IMPRESSION: No fracture within the cervical spine. Electronically signed by: Carson Cristobal MD 09/30/24 21:[address] 09/30/24 20:12 Exam(s): CT CHEST With Contrast IV Amt: 93 cc opti 320 EXAM: CT Chest With Intravenous Contrast CLINICAL HISTORY: Reason for exam: Trauma. TECHNIQUE: Axial computed tomography images of the chest with intravenous contrast. CTDI is 10.85 mGy and DLP is 361.26 mGy-cm. Automated exposure control was utilized for the study. A dose lowering technique was utilized adhering to the principles of ALARA. CONTRAST: Patient received 93 cc opti 320 of IV contrast COMPARISON: No relevant prior studies available. FINDINGS: Lungs: No pulmonary contusion. Pleural space: No pleural effusion or pneumothorax. Heart: Unremarkable. Bones/joints: No acute findings. Soft tissues: Unremarkable. Vasculature: No aortic dissection. Lymph nodes: Unremarkable. IMPRESSION: No acute findings in the chest. Electronically signed by: Carson Cristobal MD 09/30/24 21:24 PM Chest X-Ray 09/30/24 20:12 Exam(s): XR CXR 1 VIEW EXAM: XR Chest, 1 View CLINICAL HISTORY: Reason for exam: Trauma. TECHNIQUE: Frontal view of the chest. COMPARISON: 07/08/2021 FINDINGS: Lungs: No consolidation. No overt edema. Pleural space: No pleural effusion. No pneumothorax. Heart: Unremarkable. No cardiomegaly. IMPRESSION: No acute cardiopulmonary abnormality. Electronically signed by: Carson Cristobal MD 09/30/24 21:[address] 09/30/24 20:12 Exam(s): CT HEAD Without Contrast EXAM: CT Head Without Intravenous Contrast CLINICAL HISTORY: Reason for exam: trauma. TECHNIQUE: Axial computed tomography images of the head/brain without intravenous contrast. CTDI is 34.77 mGy and DLP is 624.41 mGy-cm. Automated exposure control was utilized for the study. A dose lowering technique was utilized adhering to the principles of ALARA. COMPARISON: No relevant prior studies available. FINDINGS: Brain: No hemorrhage, extra-axial fluid collection, mass effect, or edema. Ventricles: Unremarkable. Bones/joints: Unremarkable. No fracture. Soft tissues: Unremarkable. Sinuses: No acute sinusitis. Mastoid air cells: Unremarkable as visualized. IMPRESSION: 1. No acute intracranial abnormality. Electronically signed by: Carson Cristobal MD 09/30/24 21:33 PM Code Status & VTE Plan Code Status ECG. Sinus bradycardia 59. Nonspecific ST abnormality. QTc 384.
[2024-10-01 00:22] LABS: Appearance Urine Clear (Clear); Bacteria Urine Automated None Seen (None Seen); Bilirubin Urine Negative (Negative); Blood Urine Negative (Negative); Cast Urine Automated 0-2 /lpf (0-2); Color Urine Yellow; Epithelial Cell Urine Auto 0-2 /hpf (0-2); Glucose Urine UA Negative (Negative); Ketones Urine 2+ (Negative); Leukocyte Esterase Urine Negative (Negative); Nitrite Urine Negative (Negative); Protein Urine 1+ (Negative); RBC Urine Automated 0-2 /hpf (0-2); Specific Gravity Urine > 1.045 (1.000-1.030); Urobilinogen Urine Negative (Negative); WBC Urine Automated 0-5 /hpf (0-5)
[2024-10-01] MEDS: LIDOCAINE/EPINEPH/TETRACAINE 1 EA SYR EXT ONE (00:37)
[2024-10-01] MEDS: ONDANSETRON INJ 2 MG/ML 2 ML VIAL ONE (00:37)
[2024-10-01] MEDS ORDERED: NITROGLYCERIN SL 0.4 MG/TAB TAB SL PRN (00:58)
[2024-10-01 01:09] LABS: Adenovirus PCR Not Detected (NotDetected); Bordetella parapertussis PCR Not Detected (NotDetected); Bordetella pertussis PCR Not Detected (NotDetected); Chlamydia pneumoniae PCR Not Detected (NotDetected); Coronavirus 229E PCR Not Detected (NotDetected); Coronavirus CoV-2 (COVID19)PCR Not Detected (NotDetected); Coronavirus HKU1 PCR Not Detected (NotDetected); Coronavirus NL63 PCR Not Detected (NotDetected); Coronavirus OC43PCR Not Detected (NotDetected); Human Metapneumovirus PCR Not Detected (NotDetected); Influenza A (H1 2009) PCR DETECTED (NotDetected); Influenza B PCR Not Detected (NotDetected); Mycoplasma pneumoniae PCR Not Detected (NotDetected); Parainfluenza Virus 1 PCR Not Detected (NotDetected); Parainfluenza Virus 2 PCR Not Detected (NotDetected); Parainfluenza Virus 3 PCR Not Detected (NotDetected); Parainfluenza Virus 4 PCR Not Detected (NotDetected); Respiratory Syncytial VirusPCR Not Detected (NotDetected); Rhinovirus/Enterovirus PCR Not Detected (NotDetected)
--- NOTE | 2024-10-01 01:46 | Emergency Department Note ---
ED Visit Note Patient was seen and evaluated at the request of my attending for evaluation of a left side laceration to her face. Please see additional dictations outside of this repair for patient history and course. In short, the patient appears to have had syncopal/fainting episodes today with subsequent injury to her head. Initially on arrival she did have a laceration of left side head, however this was fairly approximated and not bleeding. The patient had an episode of significant vomiting here in the ER, and this did cause her laceration to reopen and bleed. On examination the patient has a linear 2.0 cm laceration to the left side face just lateral to the eyebrow. This is with some mild persistent bleeding. Laceration repair. Patient elects to have their laceration repaired. Verbal consent was obtained to perform the procedure. There is an abundance of materials available for the procedure. Patient is not allergic to latex. Using sterile technique the wound was cleaned with Betadine. The area was sterilely draped. LET gel was used to anesthetize the laceration. Once the patient was anesthetized, the wound was copiously irrigated under pressure with sterile saline. The wound was explored and there were no deep structures injured such as tendons, bone, or significant blood vessels. The laceration was repaired using 2 simple interrupted 5-0 nylon sutures with the wound edges being well approximated. Hemostasis was achieved. The area was cleaned with sterile saline and dressed with bacitracin ointment and bandage. Patient tolerated the procedure well without complications. Blood loss was negligible. .
[2024-10-01] MEDS: SODIUM CHLORIDE 0.9% 1,000 ML IV SCH (02:18)
[2024-10-01] MEDS: PROMETHAZINE 12.5 MG/50.5 ML BAG IV STA (02:19)
[2024-10-01] MEDS: OSELTAMIVIR PHOSPHATE 75 MG CAP PO STA (02:25)
--- NOTE | 2024-10-01 04:16 | XRay Report ---
EXAM: XR chest 1V portable CLINICAL HISTORY: Aspiration TECHNIQUE: An X-ray image of the chest is obtained in AP projection. COMPARISON: 07/08/2021. FINDINGS: Pulmonary Parenchyma: Lungs are clear bilaterally. No evidence of consolidation, collapse, or focal opacities. No pulmonary nodules are identified. Prominent bronchovascular markings and both hilar shadows, suggestive of pulmonary congestion or mild infection. Clinical correlation is advised. No evidence of pleural effusion or pleural thickening. Heart and Mediastinum: Heart size and shape are normal. No mediastinal widening or masses. No hilar or mediastinal lymphadenopathy. Bony Thorax: Bony thorax appears intact without fractures or deformities. Soft Tissues: Soft tissues overlying the chest wall are unremarkable. IMPRESSION: 1. No gross airspace opacities. 2. Prominent bronchovascular markings and both hilar shadows, suggestive of pulmonary congestion or mild infection. Clinical correlation is advised. 3. No significant interval changes. Electronically signed by Eddie Arthur 10-01-2024 04:16 AM
--- NOTE | 2024-10-01 04:38 | CT Scan Report ---
EXAM: CT head/brain wo con CLINICAL HISTORY: fall TECHNIQUE: Multiple axial images are obtained from the skull base to the vertex without contrast. CT scan was performed according to ALARA (as low as reasonable achievable). COMPARISON: 30 September 2024. FINDINGS: There is cerebral atrophy. No evidence of space occupying lesion, hemorrhage, edema, mass effect, midline shift, extra axial collection, or hydrocephalus is noted. Basal cisterns are symmetric and normal in size and configuration. There are scattered periventricular hypodensities as can be seen with chronic microvascular ischemic changes. The bustos-white matter differentiation is preserved. Minimal bilateral maxillary sinusitis.- reduced as compared to prior. Rest of paranasal sinuses and mastoid air cells are well aerated. Orbital contents are within normal limits. Bony structures are intact. IMPRESSION: 1. No evidence of acute intracranial abnormality is demonstrated. 2. Chronic microvascular ischemic changes. 3. Cerebral atrophy. Electronically signed by Shyam Tavera 10-01-2024 04:37 AM
--- NOTE | 2024-10-01 04:40 | CT Scan Report ---
EXAM: CT cervical spine wo con CLINICAL HISTORY: fall TECHNIQUE: Computed tomography of the cervical spine performed without intravenous contrast. Contiguous axial images were obtained from the skull base to T2, with sagittal and coronal reformatted images reconstructed from the axial data. CT scan was performed according to ALARA (as low as reasonable achievable). COMPARISON: 30 September 2024 FINDINGS: Loss of cervical lordosis - suggest possibility of muscle spasm/positional. Degenerative changes involving cervical spine in the form of multilevel marginal osteophytes, disc space reduction and facetal arthrosis. Cervical vertebral bodies are normal in height and alignment, with no evidence of fracture or subluxation. Lateral masses of C1 are symmetrical, and the dens is intact. Prevertebral soft tissues are not widened. The remaining suprahyoid and infrahyoid soft tissues in the neck are unremarkable. C2-C3: No disc bulge, mass effect on the cord or neuroforaminal narrowing. C3-C4: No disc bulge, mass effect on the cord or neuroforaminal narrowing. C4-C5: No disc bulge, mass effect on the cord or neuroforaminal narrowing. C5-C6: No disc bulge, mass effect on the cord or neuroforaminal narrowing. C6-C7: No disc bulge, mass effect on the cord or neuroforaminal narrowing. C7-T1: No disc bulge, mass effect on the cord or neuroforaminal narrowing. Thyroid gland appears unremarkable. IMPRESSION: 1.No acute fracture or subluxation in the cervical spine. 2. Mild Cervical spondylosis No other new interval abnormality since prior study. Electronically signed by Shyam Tavera 10-01-2024 04:40 AM
--- NOTE | 2024-10-01 04:53 | CT Scan Report ---
EXAM: CT chest diagnostic wo con CLINICAL HISTORY: fall. TECHNIQUE: Contiguous axial images were obtained from the neck base through the upper abdomen without contrast. In addition, sagittal and coronal reconstructions were performed to potentially increase the sensitivity for the detection of disease. CT scan was performed according to ALARA (as low as reasonable achievable). COMPARISON: None. FINDINGS: Multiple clusters of tiny centrilobular nodular opacities with ground-glass attenuation are noted involving anterior segment of right upper lobe, right middle lobe and right lower lobes with branching pattern. The central airways are patent. There are no pleural effusions. No pneumothorax is seen. Evaluation of the mediastinum and melvi is limited due to the lack of intravenous contrast. No axillary or mediastinal adenopathy is identified. The thyroid is unremarkable. The heart, aorta, and pulmonary arteries are of normal size and configuration. There are no appreciable coronary artery and aortic atherosclerotic calcifications. No pericardial effusion is identified. Imaged portions of the upper abdomen are unremarkable. No aggressive appearing osseous lesions are identified. IMPRESSION: 1.Multiple clusters of tiny centrilobular nodular opacities with ground-glass attenuation are noted involving anterior segment of right upper lobe, right middle lobe and right lower lobes with branching pattern.- possibility of infective etiology/bronchiolitis. 2. No obvious trauma related abnormality is seen. Electronically signed by Shyam Tavera 10-01-2024 04:53 AM
--- OUTSIDE RECORDS SUMMARY | 2024-10-01 06:19 | External Medical Summary | Summary of Care ---
Author Name Unknown Organization [facility] Address [address] [facility] [place] [address] Phone [phone] Care Team Providers Care Office Technologist Name Role Phone Dillon Luna MD Primary Care Provider + Reason for Visit * Reason Onset Date Comments Medication Refill 07/16/2024 Encounter Details Date Type Department Care Team (Late st Contact Info) Description 07/16/2024 Refill General Internal Medicine [facility] [place] [address] [place] [address] Dillon Luna MD 200 [facility] [place] [address] Elevated LDL cholesterol level Allergies No known active allergiesdocumented as of this encounter (statuses as of 07/17/2024) Medications Vitamin D (Cholecalciferol) 50 MCG (1999) Oral Capsule Take by mouth. Ac tive Levothyroxine Sodium 50 MCG Oral Tablet (Levoxyl)Indicatio ns:Acquired hypothyroidism TAKE 1 TABLET DAILY FIRST THING IN THE MORNING AT LEAST 30 MINUTES PRIOR TO BREAKFAST OR OTHER MEDICATIONS 90 Tablet 3 12/19/19 24 Active Citalopram Hydrobromide 40 MG Oral Tablet (CeleXA)Indication s:Depression TAKE 1 TABLET DAILY 90 Tablet 3 01/06/20 24 Active Atorvastatin Calcium 20 MG Oral Tablet (Lipitor)Indicatio ns:Elevated LDL cholesterol level Take 1 Tablet by mouth in the morning. 90 Tablet 1 07/17/20 24 Active Atorvastatin Calcium 20 MG Oral Tablet (Lipitor)Indicatio ns:Elevated LDL cholesterol level TAKE 1 TABLET DAILY 90 Tablet 1 02/26/20 24 024 Discontin ued(Refil l) documented as of this encounter (statuses as of 07/17/2024) Active Problems Problem Noted Date Diagnosed Date Arthritis of carpometacarpal (CMC) joint of righ t thumb 11/29/2022 Senile osteoporosis 11/30/2021 Major depressive disorder, s abdoulaye episode, in partial remission 11/10/2021 Other osteoporosis without current pathological fracture 04/16/2018 Major depressive disorder in remission 7 Acquired hypothyroidism 04/26/2017 EIC (epidermal inclusion cyst) 05/25/2015 Seborrheic keratosis 05/25/2015 Callus of foot 05/25/2015 documented as of this encounter (statuses as of 07/17/2024) Resolved Problems Problem Noted Date Diagnosed Date Resolved Date Osteoporosis 07/31/2012 04/16/2018 documented as of this encounter (statuses as of 07/17/2024) Immunizations Name Administration Dates Next Due COVID-19 mRNA, LNP-s, No Pre serve, 2-Dose Series ([employer]) 05/14/2021,10/01/2020,09/10/2020 COVID-19, MRNA-LNP, 24-25, P R, 30MCG/0.3ML, IM, 12YRS AND ABOVE ([employer]) 04/19/2024 COVID-19, MRNA-LNP, PF, 30 M CG/0.3 mL, 12 YRS AND ABOVE, IM ([employer]) 04/24/2023 PPD 10/22/2021 Pneumococcal Conjugate Vacc, 13 Valent (Prevnar) 04/21/2020 Pneumococcal Polysaccharide PPV23 (Pneumovax) 11/10/2021 Season Influenza, Quad, PF, Adjuvanted, 65+ Yrs, IM (FLUAD) 04/21/2020 Seasonal Influenza Vac., MDV , IM, 0.5 mL (Fluzone) 04/29/2016,04/29/2015,04/27/2014,06/05,04/17/2012,07/08/2011 Seasonal Influenza Virus Vac cine, Unspecified Formulation 04/23/2021,04/21/2020,05/06/2019,04/16,04/05/2017,04/29/2016,04/30/2014 ,04/27/2014 Seasonal Influenza, PF, 6 M & above, IM , (FluLaval or Fluzone) 05/06/2019,04/16/2018 Seasonal Influenza, Quad, Na lissa (Flumist) 04/05/2017 Seasonal Influenza, Quadriva lent Hd (Fluzone Hd) 04/15/2024,05/02/2023,05/09/2022,04/23 TDAP (age 10 and older)(Boostrix) 11/18/2021,11/2010 Varicella Zoster Vaccine (Adult) 08/12/2014 Zoster Vaccine Recombinant (Shingrix) 06/20/2019 ,04/18/2019 documented as of this encounter Social History Tobacco Use Types Packs/Day Years Used Date Smoking Tobacco: Former Cigarettes Q uit: 07/31/1971 Smokeless Tobacco: Never Comments:smoked during high school only Alcohol Use Standard Drinks/Week Comments Yes 0 (1 standard drink = 0.6 oz pur e alcohol) wine on occasion PHQ-2 Answer Date Recorded PHQ Adult Total Score 0 12/21/2022 Hunger Vital Sign Answer Date Recorded Within the past 12 months, y ou worried that your food would run out before you got the money to buy more. Never true 12/17/19 23 Within the past 12 months, t he food you bought just didn't last and you didn't have money to get more. Never true 12/16/2022 Utilities Answer Date Recorded Do you have trouble paying y our heating, water, or electric bill? (Adult - for ages 18 years and over) Not on file 01/16/2024 Is your family able to pay t he heat, water, or electric bill? (Household - for ages 0-17 years) Not on file 01/16/2024 Does your family have access to good internet? (Household - for ages 0-17 years) Not on file 01/16/2024 Social Connections Answer Date Recorded How often do you feel lonely or isolated from those around you? (Adult - for ages 18 years and over) Not on file 01/16/2024 Comments No Sex and Gender Information Value Date Recorded Sex Assigned at Female 02/21/2019 10:17 AM EDT Legal Sex Female 1:50 PM EDT Gender Identity Female 02/21/2019 10:17 AM EDT Sexual Orientation Straight 11/29/2021 7: 51 AM EDT Sexual Orientation Choose not to disclose 2021 7:51 AM EDT documented as of this encounter Miscellaneous Notes * Telephone Encounter - Gurvinder Yoon RPh - 07/17/2024 2:41 PM EST Signed Prescriptions: Disp Refills Atorvastatin Calcium 20 MG Oral Tablet (Li*90 Tab*1 Sig: Take 1 Tablet by mouth in the morning.Authorizing Provider: DILLON LUNA User: GURVINDER YOON documented in this encounter Plan of Treatment Upcoming Encounters Date Type Department Care Team (Late st Contact Info) Description 11/27/2024 10:20 AM EDT Office Visit General Internal Medicine [facility] [address] [place] [address] Dillon Luna MD 200 [facility] [place] [address] 01/15/2025 10:00 AM EDT Office Visit Rheumatology [place] [address] [place], [place] [address] Reno Alvarez MD [facility] [place], [place] [address] Scheduled Procedures Name Priority Associated Diagnoses Date/Ti me COLONOSCOPY FLEXIBLE PROXIMAL DIAGNOSTIC Recall History of colon polyps Health Maintenance Due Date Last Done Comments Cologuard 1999 Fecal Occult Blood Test 1999 Sigmoidoscopy 1999 Adult Wellness Visit 12/22/2023 12/21/2022, 12/21/19 22 Depression Monitoring 12/22/2023 12/21/2022 COVID-19 Vaccine ( season) 2024 04/19/2024, 04/19/2024, 04/24/2023, Additional history exists *BISPHONATE OR OTHER ACCEPTABLE MEDICATION NEEDED FOR OSTEOPOROSIS (REFER TO SMARTSET #1146) 06/30/2024 Mammogram 10/17/2024 10/18/2023, 09/29, 08/15/2022, Additional history exists TSH 12/03/2024 12/04/2023, 10/29, 08/06/2021, Additional history exists Colonoscopy 06/09/2025 06/09/2020, 05/31, 09/11/2012 Colorectal Cancer Screening 06/09/2025 DXA Scan 01/09/2026 01/10/2024, 01/2022, 01/04/2022, Additional history exists Lipid Panel 12/03/2028 12/04/2023, 10/29, 08/06/2021, Additional history exists DTap/Tdap Vaccines (3 - Td or Tdap) 11/19/2031 11/18/2021, 07/04/2011 Zoster Vaccines Completed 06/20/2019, 03/31, 08/12/2014 RETIRED - COLONOSCOPY-EVERY 5 YRS AGES 18-100 Discontinued 06/09/2020, 06/09/2020, 09/11/2012 Pneumococcal Vaccine: 65+ Years Completed 11/10/2021, 04/21/2020 VITAMIN D LEVEL ONCE IN A LIFETIME-USE SMARTSET# [id number] Completed 11/10/2022, 08/06/2021, 01/01/2020, Additional history exists Influenza Vaccine (FLU shot) Completed 04/15/2024, 05/02/2023, 05/09/2022, Additional history exists HPV (Gardasil) Vaccine Aged Out No lo nger eligible based on patient's age to complete this topic Hepatitis B Vaccine Aged Out No longe r eligible based on patient's age to complete this topic MENINGOCOCCAL (MENACTRA/MENVEO) Aged Out No longer eligible based on patient's age to complete this topic documented as of this encounter Medical Devices Not on filedocumented as of this encounter Visit Diagnoses Diagnosis Elevated LDL cholesterol level Pure hypercholesterolemia documented in this encounter Care Teams Office Technologist Relationship Specialty Start Date End Date Dillon Luna MD [address] [facility] [place] [address] PCP - General Internal Medicine 05/29/14 documented as of this encounter
--- OUTSIDE RECORDS SUMMARY | 2024-10-01 06:19 | External Medical Summary | Summary of Care ---
Author Name Unknown Organization [facility] Address [address] [place] [facility] [place] [address] Phone [phone] Care Team Providers Care Armature Varnisher Name Role Phone Jen Luna MD Primary Care Provider + Encounter Details Date Type Department Care Team (Late st Contact Info) Description 08/22/2024 Population Health External Data Unspecified Department Allergies No known active allergiesdocumented as of this encounter (statuses as of 08/22/2024) Medications Vitamin D (Cholecalciferol) 50 MCG (1999) [...] morning. 90 Tablet 1 07/17/20 24 Active documented as of this encounter (statuses as of 08/22/2024) Active Problems Problem Noted Date Diagnosed Date [...] as of this encounter (statuses as of 08/22/2024) Resolved Problems Problem Noted Date Diagnosed Date Resolved Date Osteoporosis 07/31/2012 04/16/2018 documented as of this encounter (statuses as of 08/22/2024) Immunizations Name Administration Dates Next Due COVID-19 mRNA, LNP-s, No Pre serve, 2-Dose Series ([employer]) 05/14/2021,10/01/2020,09/10/2020 COVID-19, MRNA-LNP, 24-25, P R, 30MCG/0.3ML, IM, 12YRS AND ABOVE ([employer]) 04/19/2024 COVID-19, MRNA-LNP, PF, 30 M CG/0.3 mL, 12 YRS AND ABOVE, IM ([employer]) 04/24/2023 PPD 10/22/2021 Pneumococcal Conjugate Vacc, 13 [...] AM EDT documented as of this encounter Plan of Treatment Upcoming Encounters Date Type Department Care Team (Late st Contact Info) Description 11/27/2024 10:20 AM EDT Office Visit General Internal Medicine [facility] [place] [address] [place] [address] Jen Luna MD 200 [facility] [place] [address] 01/15/2025 10:00 AM EDT Office Visit Rheumatology [facility] [address] [place] [address] Reno Alvarez MD [address] [place] [address] Scheduled Procedures Name Priority Associated Diagnoses Date/Ti me COLONOSCOPY FLEXIBLE PROXIMAL DIAGNOSTIC Recall History of colon polyps Health Maintenance Due Date Last Done Comments Cologuard 1999 Fecal Occult Blood Test 1999 Sigmoidoscopy 1999 Adult Wellness Visit 12/22/2023 12/21/2022, 12/21/19 Depression Monitoring 12/22/2023 12/21/2022 COVID-19 Vaccine ( [...] 18-100 Discontinued 06/09/2020, 06/09/2020, 09/11/2012 Pneumococcal Vaccine: 50+ Years Completed 11/10/2021, 04/21/2020 VITAMIN D LEVEL ONCE IN A LIFETIME-USE SMARTSET# 53904 Completed 11/10/2022, 08/06/2021, 01/01/2020, Additional history exists [...] Not on filedocumented as of this encounter Care Teams Armature Varnisher Relationship Specialty Start Date End Date Jen Luna MD [address] [place] [address] PCP - General Internal Medicine 05/29/14 documented as of this encounter
[2024-10-01] MEDS: PIPERACILLIN/TAZOBACTAM 4.5 GM/100 ML BAG IV STA (06:36)
[2024-10-01 07:24] LABS: BUN Creatinine Ratio 16.8 (10-20); Calcium 8.4 mg/dl (8.6-10.3); Creatinine Clr Calc Pharmacy 47.6 ml/min; Magnesium 1.9 mg/dl (1.7-2.4); Potassium 3.9 mmol/L (3.5-5.1)
[2024-10-01 07:26] LABS: Basophils # (auto) 0.01 K/uL (0.00-0.20); Basophils % (auto) 0.2 %; Hematocrit (blood only) 29.9 % (37.0-47.0); Hemoglobin 10.1 g/dl (12.0-16.0); Immature Granulocytes # (auto) 0.02 K/uL (0.01-0.20); Immature Granulocytes % (auto) 0.4 %; Lymphocytes # (auto) 0.46 K/uL (1.20-3.40); Lymphocytes % (auto) 9.7 %; Mean Corpuscular Hemoglobin 30.3 pg (25.0-34.0); Mean Corpuscular Hgb Conc 33.8 g/dL (32.0-36.0); Mean Corpuscular Volume 89.8 fL (80.0-100.0); Mean Platelet Volume 10.9 fL (9.4-12.4); Monocytes # (auto) 0.27 K/uL (0.11-0.59); Monocytes % (auto) 5.7 %; Neutrophils # (auto) 3.98 K/uL (1.40-6.50); Platelet Count 118 K/uL (130-400); RDW Coefficient of Variation 12.7 % (11.5-14.5); RDW Standard Deviation 41.8 fL (36.4-46.3); Red Blood Count 3.33 M/uL (4.20-5.40); White Blood Count 4.74 K/ul (4.8-10.8)
[2024-10-01 07:31] LABS: Troponin I High Sensitivity 9.1 pg/ml (0-14)
[2024-10-01 07:40] LABS: Thyroid Stimulating Hormone 0.757 uIu/ml (0.300-4.500)
[2024-10-01] MEDS: LEVOTHYROXINE SODIUM 50 MCG TABLET PO SCH (08:07)
[2024-10-01] MEDS: ACETAMINOPHEN 325 MG TAB PO PRN (08:50)
[2024-10-01] MEDS: ATORVASTATIN 20 MG TAB PO SCH (08:51)
[2024-10-01] MEDS ORDERED: VANCOMYCIN CONSULT ACTIVE PRN (09:51)
--- NOTE | 2024-10-01 09:52 | Hospitalist Progress Note ---
Date of Service October 01, 2024 Assessment & Plan (1) Syncope: Plan: 69-year-old female with past medical history significant for hypothyroidism, osteoporosis, depression, hyperlipidemia presents with syncope. Patient [place]. Since Monday evening having cough and sore throat. Today morning she had a fever. In the evening when she was in the kitchen she was feeling sick to her stomach. [place] dizzy. Still was holding the counter. Then she passed out and next thing she remembers being in the ambulance but not totally awake until in the ER. Later in the ER code purple was called as patient passed out while she was micturating at bedside commode. Seems she passed out for 20 to 30 seconds. Left facial laceration started to bleed and stopped after pressure holding. Influenza A Syncopal episodes Left facial laceration/ecchymosis Patient presented with weakness, dizziness leading to her syncopal episodes. Had fall and laceration on left side of the face. Underwent CT head, CT cervical spine and CT abdomen pelvis without any acute finding CT chest showed multiple cluster of tiny centrilobular nodular opacity with involvement of anterior segment of right lung suspicious of infective etiology. Echocardiogram shows EF of 60 to 65%; no significant valvular abnormalities Plan to continue IV fluid; possible orthostatic hypotension related with dehydration secondary to fluid late to syncopal episodes continue Tamiflu; continue on empiric antibiotics; follow-up on blood culture results Provide supportive measures Fall precaution Check orthostatic blood pressure every 8 hours Telemonitoring PT/OT evaluation Hypothyroidism On Synthroid, continue Hyperlipidemia On statin, continue Depression continue citalopram DVT prophylaxis SCDs Disposition Telemetry Full code. Time spent evaluating patient, direct bedside care, chart review, placing orders, interpretation of diagnostic studies, discussion with consultants, patient, and family members, as well as other required patient management activities is 50 minutes Please note the above document was generated using voice recognition software. It may contain grammatical, syntax or spelling errors. Any formal questions or concerns about the content, text or information contained within the body of this dictation should be directly addressed to the provider for clarification Admission and Anticipated Discharge Date Admission Date: September 30, 2024 Subjective Patient seen and examined at bedside. She reports that she is feeling slightly better compared to previous day She denies dizziness at this time. Denies any visual changes, chest pain, shortness of breath, abdominal pain or urinary symptoms. Review of Systems Review of Systems: All systems reviewed & are unremarkable except as noted in Subjective Physical Exam Physical Exam: Constitutional: Alert oriented x 3; not in distress. Head: Has significant ecchymosis on left side of the face around the eye with laceration; no active bleeding. Respiratory: normal respiratory effort, lungs clear to auscultation, no wheeze, rales, rhonchi. Normal insp/exp effort, no accessory muscle use Cardiovascular: RRR, no murmur, no edema Vessels: no JVD or carotid bruit Chest: normal inspection of chest Abdomen: normal bowel sounds, soft, nontender, no hepatosplenomegaly Musculoskeletal: no cyanosis or clubbing, extremities motor strength 5/5 Skin: no rashes, warm and dry normal turgor Neurologic: PERRL, EOMI, accommodation nl, no face palsy, no dysarthria CN's II- XI intact bilaterally and moves all extremities Results & Data Results & Data Vital Signs (Past 12 Hours) Vital Signs Temp Pulse Resp BP Pulse Ox O2 Del Method O2 Flow Rate 10/01/24 09:33 67 24 109/50 L 95 Nasal Cannula 4 10/01/24 08:45 38.7 C H 10/01/24 08:30 72 18 104/54 L 95 Nasal Cannula 4 10/01/24 08:03 82 24 10/01/24 08:00 114/53 L 10/01/24 07:33 80 10/01/24 07:02 85 23 116/54 L 96 Nasal Cannula 4 10/01/24 06:32 70 26 H 97 Nasal Cannula 4 10/01/24 06:30 115/55 L 10/01/24 06:29 72 28 H 97 Nasal Cannula 4 10/01/24 06:11 72 29 H 99 Nasal Cannula 4 10/01/24 05:50 69 31 H 98 4 10/01/24 05:30 111/59 L 10/01/24 05:29 68 28 H 98 4 10/01/24 05:11 64 32 H 98 4 10/01/24 05:00 113/54 L 10/01/24 04:51 68 29 H 99 4 10/01/24 04:33 65 30 H 10/01/24 04:30 106/65 10/01/24 04:11 64 18 10/01/24 04:05 60 32 H 97 1 10/01/24 03:35 62 23 98 4 10/01/24 03:03 65 19 10/01/24 02:36 Nasal Cannula 4 10/01/24 02:09 62 26 H 118/64 93 Nasal Cannula 4 10/01/24 01:00 61 23 127/68 98 Nasal Cannula 2 10/01/24 00:30 62 24 129/72 95 Nasal Cannula 2 10/01/24 00:27 64 23 88 L Room Air 10/01/24 00:15 66 20 134/63 10/01/24 00:13 67 10/01/24 00:06 71 20 114/59 L 09/30/24 23:56 67 18 114/59 L 93 Room Air 09/30/24 23:00 61 19 113/57 L 93 Room Air 09/30/24 22:33 63 16 96 09/30/24 22:30 110/53 L 09/30/24 22:30 110/53 L 09/30/24 22:12 60 19 95 09/30/24 22:01 101/59 L 09/30/24 22:01 101/59 L 09/30/24 22:00 56 L 21 92
[2024-10-01] MEDS: OSELTAMIVIR PHOSPHATE SUSP 30 MG/5 ML UDP PO SCH (11:07)
[2024-10-01] MEDS: VANCOMYCIN HCL 1,250 MG in SODIUM CHLORIDE 0.9% 500 ML IV ONE (11:13)
--- NOTE | 2024-10-01 11:18 | Pharmacy Report ---
Pharmacy Vanc AUC Short Note - Date of Service October 01, 2024 - Assessment & Plan Assessment * 69 year old F receiving VANCOMYCIN + ZOSYN for empiric abx therapy x 48 hours. * Pertinent microbiologic data includes: negative MRSA Nasal Swab, + Influ A, UA negative for pyuria, BLCXs pending * Day # 1 of antimicrobial therapy. Plan Vancomycin * AUC/SHELLEY is the preferred PK/PD target for vancomycin * AUC guided dosing is effective and associated with decreased risk of nephrotoxicity compared to traditional trough targets * Vancomycin 1250mg IV x 1 given this AM * Maint dose: 1250mg IV Q 24 hrs (to begin at 0000 3/) is predicted to achieve target AUC/SHELLEY of 400-600 mg/L.hr * Will check a vancomycin level if therapy anticipated to continue beyond 48 hours Pharmacy will continue to follow and will adjust dose/frequency as necessary. Thank you.
--- NOTE | 2024-10-01 12:44 | Cardiology Consultation ---
Date of Consultation October 01, 2024 Assessment & Plan (1) Syncope: (2) Influenza A: Plan Patient with dizziness/syncope, likely in setting of acute illness/dehydration, Influenza A Long history of borderline hypotension noted by the patient. No cardiac history HS troponin negative initial EKG with artifact. Repeat demonstrating normal sinus rhythm without acute ischemic changes. Echo pending. Continue on telemetry - no arrhythmias noted since admission Recommend ongoing supportive care for Influenza A and head trauma Head Ct was negative for acute intracranial abnormality. BP remains borderline low. Continue IV fluids for hydration in setting of poor PO intake. Will review echo when available. Case discussed with Dr. Bernard I spent a total of 45 minutes on the date of service in preparation, delivery, and documentation of the care provided to this patient, excluding any time spent in the performance of separately billed services. Sharyn Costa PA-C Department of Cardiology, [facility] This chart was completed in part utilizing Speech Voice Recognition Software. Grammatical errors, random word insertions, pronoun errors, and incomplete sentences are an occasional consequence of this system due to software limitations, ambient noise, and hardware issues. Any formal questions or concerns about the content, text, or information contained within the body of this dictation should be directly addressed to the provider for clarification. Supervising Physician Co-Signing Physician Notes I have personally performed a history and physical examination on the patient. I have reviewed the advance practitioner's documentation, and I agree with, and take responsibility for the plan of care. 69-year-old female with influenza A admitted with syncopal episode. Etiology likely vasovagal in the setting of dehydration, hypotension, volume depletion, and acute influenza. Resting 2D transthoracic echocardiogram demonstrates preserved LV systolic function, no valvular heart disease. Telemetry monitoring reveals sinus rhythm without dysrhythmia. Recommend ongoing supportive care for influenza A and head trauma. Continue gentle IV hydration. Conservative management of vasovagal syncope reviewed with patient. Consider addition of bilateral lower extremity compression stockings. All questions answered to patient's satisfaction. Thank you for allow me to participate in the care of your patient. Navid Bernard DO, [facility] I spent a total of 30 minutes on the date of service in preparation, delivery, and documentation of the care provided to this patient, excluding any time spent in the performance of separately billed services. History of Present Illness Reason for Consultation: Syncope Requesting Physician: Anisa Hospitalist Attending Physician: Dr. Bernard History of Present Illness Patient is a 69 year old female who presented to [facility] after a syncopal event at home. history includes: 1. Dyslipidemia 2. hypothyroidism No prior cardiac history. Patient reports she [place] from [place] on [place]. On Monday patient started not feeling well with cough/congestion, sore throat and intermittent fevers. Poor PO appetite. Yesterday afternoon patient reports she was walking in her house and felt sudden onset dizziness and fell to the ground striking her head. She is unsure if she lost consciousness before or after the fall. No incontinence. She was brought to the ER due to head trauma. She had not had anything to eat/drink prior to event. She tested positive for Influenza A. She reports having a history of intermittent syncope. Last event about 6 months ago. Patient reports, in the past her dizziness and syncope has been in setting of dehydration and low BP. She reports historically low BP "all her life". At time of consult, patient resting in bed feeling ok. Ongoing cough and congestion noted with fevers. No chest pain or SOB. No recurrent dizziness, syncope or near syncope. Allergies Allergy/AdvReac Type Severity Reaction Status Date / Time No Known Allergies Allergy Unverified 07/08/21 20:10 Home Medications Medication Instructions Recorded Confirmed Type atorvastatin 20 mg tablet 20 mg PO DAILY 07/08/21 09/30/24 History citalopram 40 mg tablet 40 mg PO DAILY 07/08/21 09/30/24 History levothyroxine 50 mcg tablet 50 mcg PO DAILY 07/08/21 09/30/24 History (Synthroid) Patient History Medical History Hypothyroidism Hyperlipidemia Family History Other Family history non-contributory Social History Smoking Status: Never smoker Hx Alcohol Use: Yes Alcohol type: beer Hx Substance Use: No Preferred Language: Lao Communication Ability: Effective Certified Flight Instructor Required: No Beliefs That Will Affect Care: None Current Living Situation: Spouse Feels Safe at Home: Yes Review of Systems Review of Systems: All systems reviewed & are unremarkable except as noted in HPI & below Physical Exam Constitutional: average body habitus Significant ecchymosis of the right eye and right temporal area with scalp lacerations Neck: trachea midline, no thyromegaly Respiratory: no labored breathing Auscultation: + diminished lung sounds, + rhonchi and + wheezes Cardiovascular: Rate/Rhythm: regular rate and regular rhythm Heart Sounds: normal S1 and normal S2; no murmur Vessels: no JVD Extremities: no edema Gastrointestinal (Abdomen): normal bowel sounds, soft, nontender, no hepatosplenomegaly Musculoskeletal: no cyanosis or clubbing, extremities motor strength 5/5 Neurologic: PERRL, EOMI, accommodation nl, no face palsy, no dysarthria Results & Data Vital Signs (Past 12 Hours) Vital Signs Temp Pulse Resp BP Pulse Ox O2 Del Method O2 Flow Rate 10/01/24 10:30 65 22 107/51 L 96 Nasal Cannula 4 10/01/24 10:00 66 24 114/52 L 95 Nasal Cannula 4 10/01/24 09:33 67 24 109/50 L 95 Nasal Cannula 4 10/01/24 08:45 38.7 C H 10/01/24 08:30 72 18 104/54 L 95 Nasal Cannula 4 10/01/24 08:03 82 24 10/01/24 08:00 114/53 L 10/01/24 07:33 80 10/01/24 07:02 85 23 116/54 L 96 Nasal Cannula 4 10/01/24 06:32 70 26 H 97 Nasal Cannula 4 10/01/24 06:30 115/55 L 10/01/24 06:29 72 28 H 97 Nasal Cannula 4 10/01/24 06:11 72 29 H 99 Nasal Cannula 4 10/01/24 05:50 69 31 H 98 4 10/01/24 05:30 111/59 L 10/01/24 05:29 68 28 H 98 4 10/01/24 05:11 64 32 H 98 4 10/01/24 05:00 113/54 L 10/01/24 04:51 68 29 H 99 4 10/01/24 04:33 65 30 H 10/01/24 04:30 106/65 10/01/24 04:11 64 18 10/01/24 04:05 60 32 H 97 1 10/01/24 03:35 62 23 98 4 10/01/24 03:03 65 19 10/01/24 02:36 Nasal Cannula 4 10/01/24 02:09 62 26 H 118/64 93 Nasal Cannula 4 10/01/24 01:00 61 23 127/68 98 Nasal Cannula 2 Laboratory Results Cardiac Enzymes 09/30/24 10/01/24 10/01/24 Range/Units 20:14 00:30 06:44 AST 46 H (13-39) U/L Troponin I High Sens < 2.3 6.3 D 9.1 (0-14) pg/ml 10/01/24 Range/Units 10:15 AST (13-39) U/L Troponin I High Sens 9.5 (0-14) pg/ml Coagulation 09/30/24 Range/Units 20:14 PT 10.4 (9.0-12.0) Seconds APTT 23 (21-31) Seconds CBC 09/30/24 10/01/24 Range/Units 20:14 06:44 WBC 5.39 4.74 L (4.8-10.8) K/ul RBC 3.66 L 3.33 L (4.20-5.40) M/uL Hgb 11.0 L 10.1 L (12.0-16.0) g/dl Hct 32.9 L 29.9 L (37.0-47.0) % Plt Count 167 118 L (130-400) K/uL Neut # (Auto) 3.22 3.98 (1.40-6.50) K/uL Lymph # (Auto) 1.50 0.46 L (1.20-3.40) K/uL [place] # (Auto) 0.54 0.27 (0.11-0.59) K/uL Eos # (Auto) 0.09 0.00 (0.00-0.50) K/uL Baso # (Auto) 0.02 0.01 (0.00-0.20) K/uL Comprehensive Metabolic Panel 09/30/24 10/01/24 Range/Units 20:14 06:44 Sodium 136 137 (136-145) mmol/L Potassium 3.5 3.9 (3.5-5.1) mmol/L Chloride 105 105 (98-107) mmol/L Carbon Dioxide 25 26 (21-32) mmol/L BUN 18 16 (6-23) mg/dl Creatinine 1.08 0.95 (0.6-1.2) mg/dl Glucose 141 H 129 H (70-99(Fasting)) mg/dl Calcium 9.1 8.4 L (8.6-10.3) mg/dl AST 46 H (13-39) U/L ALT 39 (7-52) U/L Alkaline Phosphatase 45 (34-104) U/L Total Protein 6.2 (6.0-8.3) gm/dl Albumin 3.9 (3.4-5.0) gm/dl Intake and Output 09/30/24 10/01/24 10/01/24 22:59 06:59 14:59 Intake Total 50.5 / 50.5 100 / 100 Balance 50.5 / 50.5 100 / 100 Intake: IV 50.5 / 50.5 100 / 100 Piperacillin/Tazobactam 4.5 gm 100 / 100 In 100 ml @ 200 mls/hr IV [facility] Rx#:[id number] Promethazine 12.5 mg In 50.5 ml 50.5 / 50.5 @ 202 mls/hr IV NOW [facility] Rx#: [id number] Other: Weight 57 kg 57 kg Weight Measurement Method Built in [facility] Built in [facility] Diagnostic Findings Telemetry reviewed: NSR. No arrhythmias EKG reviewed from 10/01/24: NSR at 65 bmp no acute ischemic changes. EKG reviewed from 09/30/24: NSR with non specific T wave abnormality in lateral leads Significant artifact noted which may limit interpretation Echo pending Chest X-Ray 10/01/24 01:44 IMPRESSION: 1. No gross airspace opacities. 2. Prominent bronchovascular markings and both hilar shadows, suggestive of pulmonary congestion or mild infection. Clinical correlation is advised. 3. No significant interval changes. Electronically signed by Eddie Arthur 10-01-2024 04:[address] 10/01/24 03:28 IMPRESSION: 1.Multiple clusters of tiny centrilobular nodular opacities with ground-glass attenuation are noted involving anterior segment of right upper lobe, right middle lobe and right lower lobes with branching pattern.- possibility of infective etiology/bronchiolitis. 2. No obvious trauma related abnormality is seen. Electronically signed by Shyam Tavera 10-01-2024 04:[address] 10/01/24 03:28 IMPRESSION: 1. No evidence of acute intracranial abnormality is demonstrated. 2. Chronic microvascular ischemic changes. 3. Cerebral atrophy. Electronically signed by Shyam Tavera 10-01-2024 04:37 AM Medications Administered Current Inpatient Medications Acetaminophen (Acetaminophen 325 Mg Tab) 650 mg PO Q4H PRN PRN Reason: Pain or Fever Stop: 10/31/24 00:57 Last Admin: 10/01/24 08:50 Dose: 650 mg Atorvastatin Calcium (Atorvastatin 20 Mg Tab) 20 mg PO DAILY [facility] Stop: 10/31/24 08:59 Last Admin: 10/01/24 08:51 Dose: 20 mg Sodium Chloride (Nss) 1,000 mls @ 125 mls/hr IV .Q8H [facility] Stop: 10/02/24 00:57 Last Admin: 10/01/24 02:18 Dose: 125 mls/hr Piperacillin Sod/Tazobactam Sod (Zosyn) 4.5 gm in 100 mls @ 25 mls/hr IV Q8H [facility]; Protocol Stop: 10/06/24 11:59 Vancomycin HCl 1,250 mg/ (Sodium Chloride) 275 mls @ 200 mls/hr IV Q24H [facility] Stop: 10/04/24 00:00 Levothyroxine Sodium (Levothyroxine Sodium 50 Mcg Tablet) 50 mcg PO DAILYBB [facility] Stop: 10/31/24 06:29 Last Admin: 10/01/24 08:07 Dose: 50 mcg Miscellaneous Information (Vancomycin Consult Active) 1 each N/A UD PRN PRN Reason: Consult Stop: 10/31/24 09:50 Nitroglycerin (Nitroglycerin Sl 0.4 Mg/Tab Tab) 0.4 mg SL Q5M PRN PRN Reason: Chest Pain Stop: 10/31/24 00:57 Ondansetron HCl (Ondansetron Inj 2 Mg/Ml 2 Ml Vial) 4 mg IV Q6H PRN PRN Reason: Nausea Stop: 10/31/24 00:57 Oseltamivir Phosphate (Oseltamivir Phosphate Susp 30 Mg/5 Ml Udp) 30 mg PO BID [facility] Stop: 10/05/24 09:01 Last Admin: 10/01/24 11:07 Dose: 30 mg (1) Syncope Syncope type: unspecified Qualified Code(s): R55 - Syncope and collapse
[2024-10-01] MEDS: PIPERACILLIN/TAZOBACTAM 4.5 GM/100 ML BAG IV SCH (14:01)
[2024-10-01] MEDS: VANCOMYCIN HCL 1,250 MG in SODIUM CHLORIDE 0.9% 250 ML IV SCH (23:48)
[2024-10-02 06:49] LABS: BUN Creatinine Ratio 11.9 (10-20); Calcium 7.6 mg/dl (8.6-10.3); Creatinine Clr Calc Pharmacy 44.8 ml/min; Potassium 3.5 mmol/L (3.5-5.1)
[2024-10-02 06:59] LABS: Hematocrit (blood only) 27.7 % (37.0-47.0); Hemoglobin 8.8 g/dl (12.0-16.0); Mean Corpuscular Hemoglobin 29.6 pg (25.0-34.0); Mean Corpuscular Hgb Conc 31.8 g/dL (32.0-36.0); Mean Corpuscular Volume 93.3 fL (80.0-100.0); Platelet Count 110 K/uL (130-400); RDW Coefficient of Variation 13.1 % (11.5-14.5); RDW Standard Deviation 44.5 fL (36.4-46.3); Red Blood Count 2.97 M/uL (4.20-5.40); White Blood Count 5.83 K/ul (4.8-10.8)
[2024-10-02 07:02] LABS: Basophils # (auto) 0.01 K/uL (0.00-0.20); Basophils % (auto) 0.2 %; Eosinophils # (auto) 0.03 K/uL (0.00-0.50); Eosinophils % (auto) 0.5 %; Immature Granulocytes # (auto) 0.01 K/uL (0.01-0.20); Immature Granulocytes % (auto) 0.2 %; Lymphocytes # (auto) 1.13 K/uL (1.20-3.40); Lymphocytes % (auto) 19.4 %; Monocytes # (auto) 0.27 K/uL (0.11-0.59); Monocytes % (auto) 4.6 %; Neutrophils # (auto) 4.38 K/uL (1.40-6.50); Neutrophils % (auto) 75.1 %; Polychromasia 1+
[2024-10-02] MEDS: POTASSIUM CHLORIDE CRTAB 20 MEQ TABCR PO ONE (08:46)
[2024-10-02] MEDS: SODIUM CHLORIDE 0.9% 1,000 ML IV ONE (08:46)
[2024-10-02] MEDS: CITALOPRAM 40 MG TAB PO SCH (08:46)
--- NOTE | 2024-10-02 11:03 | Cardiology Progress Note ---
Date of Service October 02, 2024 Assessment & Plan (1) Syncope: (2) Influenza A: (3) PVCs (premature ventricular contractions): (4) Vasovagal near syncope: Plan 10/01/24: Patient with dizziness/syncope, likely in setting of acute illness/dehydration, Influenza A Long history of borderline hypotension noted by the patient. No cardiac history HS troponin negative initial EKG with artifact. Repeat demonstrating normal sinus rhythm without acute ischemic changes. Echo pending. Continue on telemetry - no arrhythmias noted since admission Recommend ongoing supportive care for Influenza A and head trauma Head Ct was negative for acute intracranial abnormality. BP remains borderline low. Continue IV fluids for hydration in setting of poor PO intake. 10/02/24: No recurrent syncope or near syncope. Patient reports long history of vasovagal like syncope, possibly also with orthostatoc hypotension. Echo with preserved LVEF. No structural heart disease. No concerning arrhythmias on telemetry. She is having runs of ventricular bigeminy. No symptoms. Potassium was low normal this morning and supplements provided. Goal potassium 4-5. Recheck mag and supplement if < 2.0. Consider outpatient ZIO upon discharge. Avoidance of alcohol and dehydration advised. No further inpatient cardiac testing warranted at this time. Will sign off. Please contact python django developer cardiology provider with additional questions or concerns. Case discussed with Dr. Bernard I spent a total of 30minutes on the date of service in preparation, delivery, and documentation of the care provided to this patient, excluding any time spent in the performance of separately billed services. Sharyn Costa PA-C Department of Cardiology, [facility] This chart was completed in part utilizing Speech Voice Recognition Software. Grammatical errors, random word insertions, pronoun errors, and incomplete sentences are an occasional consequence of this system due to software limitations, ambient noise, and hardware issues. Any formal questions or concerns about the content, text, or information contained within the body of this dictation should be directly addressed to the provider for clarification. Admission and Anticipated Discharge Date Admission Date: September 30, 2024 Supervising Physician Co-Signing Physician Notes I have personally performed a history and physical examination on the patient. I have reviewed the advance practitioner's documentation, and I agree with, and take responsibility for the plan of care. 69-year-old female with influenza A. Syncope likely vasovagal in the setting of dehydration, hypotension, volume depletion, and acute influenza. Resting 2D transthoracic echocardiogram demonstrates preserved LV systolic function, no valvular heart disease. Telemetry monitoring reveals sinus rhythm without dysrhythmia. Recommend ongoing supportive care for influenza A and head trauma. Continue IV hydration. Conservative management of vasovagal syncope reviewed with patient. Consider addition of bilateral lower extremity compression stockings. No further inpatient cardiac testing or intervention recommended at this time. Cardiology will sign off. Please call with additional concerns/questions. Navid Bernard DO, [facility] I spent a total of 20 minutes on the date of service in preparation, delivery, and documentation of the care provided to this patient, excluding any time spent in the performance of separately billed services. Subjective Patient resting in bed. Feeling "ok". No headache. No chest pain or SOB. No dizziness or lightheadedness. No syncope or near sycope. She is having runs of ventricular bigeminy on telemetry. She is asymptomatic. HR's in the 60s. No symptomatic bradycardia or pauses Review of Systems Review of Systems: All systems reviewed & are unremarkable except as noted in HPI & below Physical Exam Constitutional: average body habitus Neck: trachea midline, no thyromegaly Respiratory: no labored breathing Auscultation: + diminished lung sounds, + rhonchi and + wheezes Cardiovascular: Rate/Rhythm: regular rate and regular rhythm Heart Sounds: normal S1 and normal S2; no murmur Vessels: no JVD Extremities: no edema Gastrointestinal (Abdomen): normal bowel sounds, soft, nontender, no hepatosplenomegaly Musculoskeletal: no cyanosis or clubbing, extremities motor strength 5/5 Neurologic: PERRL, EOMI, accommodation nl, no face palsy, no dysarthria Results & Data Vital Signs (Past 12 Hours) Vital Signs Temp Pulse Pulse Resp BP BP Pulse Ox 10/02/24 07:42 10/02/24 07:05 37.5 C 80 23 85/32 L 95/39 L 94 10/02/24 06:37 37.2 C 10/02/24 06:05 38 C H 10/02/24 03:36 36.6 C 80 22 104/49 L 93 10/01/24 23:00 79 O2 Del Method O2 Flow Rate 10/02/24 07:42 Nasal Cannula 2 10/02/24 07:05 Nasal Cannula 2 10/02/24 06:37 10/02/24 06:05 10/02/24 03:36 Nasal Cannula 2.0 10/01/24 23:00 Laboratory Results Cardiac Enzymes 10/01/24 Range/Units 10:15 Troponin I High Sens 9.5 (0-14) pg/ml CBC 10/02/24 Range/Units 05:36 WBC 5.83 (4.8-10.8) K/ul RBC 2.97 L (4.20-5.40) M/uL Hgb 8.8 L (12.0-16.0) g/dl Hct 27.7 L (37.0-47.0) % Plt Count 110 L (130-400) K/uL Neut # (Auto) 4.38 (1.40-6.50) K/uL Lymph # (Auto) 1.13 L (1.20-3.40) K/uL [place] # (Auto) 0.27 (0.11-0.59) K/uL Eos # (Auto) 0.03 (0.00-0.50) K/uL Baso # (Auto) 0.01 (0.00-0.20) K/uL Comprehensive Metabolic Panel 10/02/24 Range/Units 05:36 Sodium 142 (136-145) mmol/L Potassium 3.5 (3.5-5.1) mmol/L Chloride 112 H (98-107) mmol/L Carbon Dioxide 25 (21-32) mmol/L BUN 12 (6-23) mg/dl Creatinine 1.01 (0.6-1.2) mg/dl Glucose 81 (70-99(Fasting)) mg/dl Calcium 7.6 L (8.6-10.3) mg/dl Intake and Output 10/01/24 10/02/24 10/02/24 22:59 06:59 14:59 Intake Total 1100 / 3200 475 / 3200 1100 / 1100 Output Total 550 / 550 400 / 400 Balance 550 / 2650 475 / 2650 700 / 700 Intake: IV 1100 / 3100 375 / 3100 1100 / 1100 Piperacillin/Tazobactam 4.5 gm 100 / 200 100 / 200 100 / 100 In 100 ml @ 25 mls/hr IV Q8H [facility] Rx#:[id number] Sodium Chloride 0.9% 1,000 ml @ 1000 / 2000 1000 / 1000 125 mls/hr IV .Q8H [facility] Rx#: [id number] Vancomycin HCl 1,250 mg In 275 / 275 Sodium Chloride 0.9% 250 ml @ 200 mls/hr IV Q24H [facility] Rx#: [id number] Oral 100 / 100 Output: Urine 550 / 550 400 / 400 Other: # Unmeasured Voids 1 Weight 60 kg Weight Measurement Method Built in [facility] Diagnostic Findings Telemetry reviewed: NSR with intermittent PVC's and ventricular bigeminy. EKG from this morning, 10/02/24: NSR with Ventricular bigeminy No acute changes Echo report reviewed from 10/01/24: Normal LVEF at 60-65% Mild MR Trace TR No pulm hypertension Mildly dilated aortic root Medications Administered Current Inpatient Medications Acetaminophen (Acetaminophen 325 Mg Tab) 650 mg PO Q4H PRN PRN Reason: Pain or Fever Stop: 10/31/24 00:57 Last Admin: 10/02/24 10:50 Dose: 650 mg Atorvastatin Calcium (Atorvastatin 20 Mg Tab) 20 mg PO DAILY [facility] Stop: 10/31/24 08:59 Last Admin: 10/02/24 10:48 Dose: 20 mg Citalopram Hydrobromide (Citalopram 40 Mg Tab) 40 mg PO DAILY [facility] Stop: 11/01/24 08:59 Last Admin: 10/02/24 08:46 Dose: 40 mg Piperacillin Sod/Tazobactam Sod (Zosyn) 4.5 gm in 100 mls @ 25 mls/hr IV Q8H [facility]; Protocol Stop: 10/06/24 11:59 Last Infusion: 10/02/24 08:43 Dose: Infused Vancomycin HCl 1,250 mg/ (Sodium Chloride) 275 mls @ 200 mls/hr IV Q24H [facility] Stop: 10/04/24 00:00 Last Infusion: 10/02/24 01:15 Dose: Infused Sodium Chloride (Nss) 1,000 mls @ 80 mls/hr IV .[id number] [facility] Stop: 10/02/24 20:41 Last Admin: 10/02/24 08:46 Dose: 80 mls/hr Levothyroxine Sodium (Levothyroxine Sodium 50 Mcg Tablet) 50 mcg PO DAILYBB [facility] Stop: 10/31/24 06:29 Last Admin: 10/02/24 06:09 Dose: 50 mcg Miscellaneous Information (Vancomycin Consult Active) 1 each N/A UD PRN PRN Reason: Consult Stop: 10/31/24 09:50 Nitroglycerin (Nitroglycerin Sl 0.4 Mg/Tab Tab) 0.4 mg SL Q5M PRN PRN Reason: Chest Pain Stop: 10/31/24 00:57 Ondansetron HCl (Ondansetron Inj 2 Mg/Ml 2 Ml Vial) 4 mg IV Q6H PRN PRN Reason: Nausea Stop: 10/31/24 00:57 Oseltamivir Phosphate (Oseltamivir Phosphate Susp 30 Mg/5 Ml Udp) 30 mg PO BID [facility] Stop: 10/05/24 09:01 Last Admin: 10/02/24 10:48 Dose: 30 mg (1) Syncope Syncope type: unspecified Qualified Code(s): R55 - Syncope and collapse
--- NOTE | 2024-10-02 14:16 | Hospitalist Progress Note ---
Date of Service October 02, 2024 Assessment & Plan (1) Syncope: Plan: 69-year-old female with past medical history significant for hypothyroidism, osteoporosis, depression, hyperlipidemia presents with syncope. Patient [place]. Since Monday evening having cough and sore throat. Today morning she had a fever. In the evening when she was in the kitchen she was feeling sick to her stomach. [place] dizzy. Still was holding the counter. Then she passed out and next thing she remembers being in the ambulance but not totally awake until in the ER. Later in the ER code purple was called as patient passed out while she was micturating at bedside commode. Seems she passed out for 20 to 30 seconds. Left facial laceration started to bleed and stopped after pressure holding. Influenza A CAP--POA Syncopal episode likely vasovagal Left facial laceration/ecchymosis Patient presented with weakness, dizziness leading to her syncopal episodes. Had fall and laceration on left side of the face. --CT head, CT cervical spine and CT abdomen pelvis without any acute finding --CT chest:Multiple clusters of tiny centrilobular nodular opacities with ground-glass attenuation are noted involving anterior segment of right upper lobe, right middle lobe and right lower lobes with branching pattern.- possibility of infective etiology/bronchiolitis. No obvious trauma related abnormality is seen. --ECHO: EF 60 to 65%. Mild mitral regurgitation. Trace tricuspid regurgitation. No findings to suggest pulmonary hypertension. Mild aortic root dilatation --Blood Cultures: Negative to date --Orthostatics noncontributory --Continue vancomycin, Zosyn, Tamiflu -- Wean off of supplemental oxygen as able --Continue IV fluids Appreciate cardiology input PT OT, fall precautions Premature ventricular contractions Monitor and replete electrolytes as needed Consider ZIO monitor as outpatient Hypothyroidism Continue levothyroxine Hyperlipidemia Continue statin Depression continue citalopram DVT prophylaxis SCDs for now CODE STATUS Full code Disposition PT OT prior to discharge Admission and Anticipated Discharge Date Admission Date: September 30, 2024 Subjective Patient is seen and examined at bedside Reports cough, some chest discomfort associated with cough Denies any dizziness, dyspnea, nausea, vomiting, abdominal pain Admits to have some facial pain at the site of laceration No other complaints today Eager to get discharged Review of Systems Review of Systems: All systems reviewed & are unremarkable except as noted in Subjective Physical Exam Physical Exam: Physical Exam: Vitals signs as noted above General Appearance: Thin, frail, no apparent distress Head: normocephalic, +traumatic , Left facial ecchymosis, mild swelling, tender,+Laceration Eyes: normal inspection, EOMI Neck: supple, Trachea midline Respiratory/Chest: Decreased breath sounds, CTA, No accessory muscle use Cardiovascular: S1, S2, No murmur Abdomen/GI:Soft, Non tender, Bowel sounds present Extremities/Musculoskeletal:normal inspection, no edema Neurologic/Psych:AAOX3, grossly no focal neurological deficits Skin: normal color, warm Results & Data Results & Data Vital Signs (Past 12 Hours) Vital Signs Temp Pulse Pulse Resp BP BP Pulse Ox 10/02/24 13:57 108/55 L 10/02/24 13:25 109/47 L 10/02/24 12:58 85/44 L 106/52 L 10/02/24 12:24 90/43 L 10/02/24 12:12 85 10/02/24 11:50 91/45 L 10/02/24 11:45 70/34 L 10/02/24 11:26 84/38 L 10/02/24 10:56 36.3 C L 63 25 H 93/45 L 93 10/02/24 07:42 10/02/24 07:05 37.5 C 80 23 85/32 L 95/39 L 94 10/02/24 06:37 37.2 C 10/02/24 06:05 38 C H 10/02/24 03:36 36.6 C 80 22 104/49 L 93 O2 Del Method O2 Flow Rate 10/02/24 13:57 10/02/24 13:25 10/02/24 12:58 10/02/24 12:24 10/02/24 12:12 10/02/24 11:50 10/02/24 11:45 10/02/24 11:26 10/02/24 10:56 Nasal Cannula 2 10/02/24 07:42 Nasal Cannula 2 10/02/24 07:05 Nasal Cannula 2 10/02/24 06:37 10/02/24 06:05 10/02/24 03:36 Nasal Cannula 2.0 Laboratory Results Short CBC 10/02/24 Range/Units 05:36 WBC 5.83 (4.8-10.8) K/ul Hgb 8.8 L (12.0-16.0) g/dl Hct 27.7 L (37.0-47.0) % Plt Count 110 L (130-400) K/uL [facility] 10/02/24 05:36 Sodium 142 Potassium 3.5 Chloride 112 H Carbon Dioxide 25 BUN 12 Creatinine 1.01 Glucose 81 Calcium 7.6 L (1) Syncope Syncope type: unspecified Qualified Code(s): R55 - Syncope and collapse
[2024-10-02] MEDS: MAGNESIUM SULFATE / D5W 1 GM/100 ML BAG IV SCH (15:22)
--- NOTE | 2024-10-02 15:54 | Electrocardiogram Report ---
Test Reason : Blood Pressure : */* mmHG Vent. Rate : 88 BPM Atrial Rate : 88 BPM P-R Int : 154 ms QRS Dur : 90 ms QT Int : 330 ms P-R-T Axes : 66 45 42 degrees QTcB Int : 399 ms Sinus rhythm with frequent Premature ventricular complexes in a pattern of bigeminy Low voltage QRS Junctional ST depression, probably normal Borderline ECG When compared with ECG of 01-Oct-2024 11:11, (unconfirmed) Premature ventricular complexes are now Present Confirmed by Bo Navarro ([id number]) on 10/02/2024 3:53:35 PM Referred By: REFERRED SELF Confirmed By: Bo Navarro
--- NOTE | 2024-10-02 20:38 | Electrocardiogram Report ---
Test Reason : Blood Pressure : */* mmHG Vent. Rate : 59 BPM Atrial Rate : 59 BPM P-R Int : 172 ms QRS Dur : 98 ms QT Int : 388 ms P-R-T Axes : 67 46 76 degrees QTcB Int : 384 ms Poor data quality, interpretation may be adversely affected Sinus bradycardia Probable Normal ECG When compared with ECG of 08-Jul-2021 20:07, No significant change Confirmed by Bo Navarro ([id number]) on 10/02/2024 8:38:04 PM Referred By: REFERRED SELF Confirmed By: Bo Navarro
--- NOTE | 2024-10-02 21:04 | Electrocardiogram Report ---
Test Reason : Blood Pressure : */* mmHG Vent. Rate : 65 BPM Atrial Rate : 65 BPM P-R Int : 152 ms QRS Dur : 98 ms QT Int : 392 ms P-R-T Axes : 37 49 31 degrees QTcB Int : 407 ms Normal sinus rhythm Normal ECG When compared with ECG of 30-Sep-2024 20:12, (unconfirmed) No significant change was found Confirmed by Bo Navarro ([id number]) on 10/02/2024 9:03:53 PM Referred By: REFERRED SELF Confirmed By: Bo Navarro
[2024-10-03 06:38] LABS: Hematocrit (blood only) 26.1 % (37.0-47.0); Hemoglobin 8.4 g/dl (12.0-16.0); Mean Corpuscular Hemoglobin 29.8 pg (25.0-34.0); Mean Corpuscular Hgb Conc 32.2 g/dL (32.0-36.0); Mean Corpuscular Volume 92.6 fL (80.0-100.0); Mean Platelet Volume 10.9 fL (9.4-12.4); Platelet Count 118 K/uL (130-400); RDW Coefficient of Variation 13.1 % (11.5-14.5); RDW Standard Deviation 44.1 fL (36.4-46.3); Red Blood Count 2.82 M/uL (4.20-5.40); White Blood Count 6.19 K/ul (4.8-10.8)
[2024-10-03 06:47] LABS: BUN Creatinine Ratio 10.3 (10-20); Calcium 8.1 mg/dl (8.6-10.3); Magnesium 2.1 mg/dl (1.7-2.4); Potassium 3.9 mmol/L (3.5-5.1)
[2024-10-03] MEDS: DOXYCYCLINE HYCLATE 100 MG CAP PO ONE (11:45)
[2024-10-03] MEDS ORDERED: VANCOMYCIN HCL 1,000 MG/270 ML BAG IV SCH (12:00)
--- NOTE | 2024-10-03 15:42 | Hospitalist Progress Note ---
Date of Service October 03, 2024 Assessment & Plan (1) Syncope: Plan: 69-year-old female with past medical history significant for hypothyroidism, osteoporosis, depression, hyperlipidemia presents with syncope. Patient [place]. Since Monday evening having cough and sore throat. Today morning she had a fever. In the evening when she was in the kitchen she was feeling sick to her stomach. [place] dizzy. Still was holding the counter. Then she passed out and next thing she remembers being in the ambulance but not totally awake until in the ER. Later in the ER code purple was called as patient passed out while she was micturating at bedside commode. Seems she passed out for 20 to 30 seconds. Left facial laceration started to bleed and stopped after pressure holding. Influenza A CAP--POA Syncopal episode likely vasovagal Left facial laceration/ecchymosis Patient presented with weakness, dizziness leading to her syncopal episodes. Had fall and laceration on left side of the face. --CT head, CT cervical spine and CT abdomen pelvis without any acute finding --CT chest:Multiple clusters of tiny centrilobular nodular opacities with ground-glass attenuation are noted involving anterior segment of right upper lobe, right middle lobe and right lower lobes with branching pattern.- possibility of infective etiology/bronchiolitis. No obvious trauma related abnormality is seen. --ECHO: EF 60 to 65%. Mild mitral regurgitation. Trace tricuspid regurgitation. No findings to suggest pulmonary hypertension. Mild aortic root dilatation --Blood Cultures: Negative to date --Orthostatics noncontributory --Continue Zosyn, Tamiflu --Transition vancomycin to doxycycline -- Wean off of supplemental oxygen as able -- Received IV fluids Appreciate cardiology input fall precautions PT OT recommends to return home Will need to step prior to discharge Premature ventricular contractions Monitor and replete electrolytes as needed Consider ZIO monitor as outpatient Hypothyroidism Continue levothyroxine Hyperlipidemia Continue statin Depression continue citalopram DVT prophylaxis SCDs for now CODE STATUS Full code Disposition Plan to discharge home likely tomorrow Admission and Anticipated Discharge Date Admission Date: September 30, 2024 Subjective Patient is seen and examined at bedside States feeling better today Still has mild cough Left facial pain improving Denies any dizziness, dyspnea, nausea, vomiting, abdominal pain Saturating well on minimal supplemental oxygen Review of Systems Review of Systems: All systems reviewed & are unremarkable except as noted in Subjective Physical Exam Physical Exam: Physical Exam: Vitals signs as noted above General Appearance: Thin, frail, no apparent distress Head: normocephalic, +traumatic , Left facial ecchymosis, mild swelling, tender,+Laceration Eyes: normal inspection, EOMI Neck: supple, Trachea midline Respiratory/Chest: Decreased breath sounds, CTA, No accessory muscle use Cardiovascular: S1, S2, No murmur Abdomen/GI:Soft, Non tender, Bowel sounds present Extremities/Musculoskeletal:normal inspection, no edema Neurologic/Psych:AAOX3, grossly no focal neurological deficits Skin: normal color, warm Results & Data Results & Data Vital Signs (Past 12 Hours) Vital Signs Temp Pulse Pulse Resp BP Pulse Ox Pulse Ox 10/03/24 15:32 68 10/03/24 11:52 94 10/03/24 11:00 37.0 C 75 92/49 L 10/03/24 08:32 10/03/24 08:00 54 L 10/03/24 08:00 36.9 C 60 20 110/56 L 96 Pulse Ox Pulse Ox O2 Del Method O2 Flow Rate O2 Flow Rate O2 Flow Rate O2 Flow Rate 10/03/24 15:32 10/03/24 11:52 96 90 2 2 0 10/03/24 11:00 10/03/24 08:32 Nasal Cannula 2 10/03/24 08:00 10/03/24 08:00 Nasal Cannula 2 Laboratory Results Short CBC 10/03/24 Range/Units 05:35 WBC 6.19 (4.8-10.8) K/ul Hgb 8.4 L (12.0-16.0) g/dl Hct 26.1 L (37.0-47.0) % Plt Count 118 L (130-400) K/uL BMP 10/03/24 05:35 Sodium 141 Potassium 3.9 Chloride 114 H Carbon Dioxide 27 BUN 8 Creatinine 0.78 Glucose 83 Calcium 8.1 L (1) Syncope Syncope type: unspecified Qualified Code(s): R55 - Syncope and collapse
[2024-10-03] MEDS: DOXYCYCLINE HYCLATE 100 MG CAP PO SCH (19:53)
[2024-10-04 07:46] LABS: Hemoglobin 8.5 g/dl (12.0-16.0); Mean Corpuscular Hemoglobin 29.5 pg (25.0-34.0); Mean Corpuscular Hgb Conc 32.7 g/dL (32.0-36.0); Mean Corpuscular Volume 90.3 fL (80.0-100.0); Mean Platelet Volume 10.9 fL (9.4-12.4); Platelet Count 133 K/uL (130-400); RDW Coefficient of Variation 12.8 % (11.5-14.5); RDW Standard Deviation 42.4 fL (36.4-46.3); Red Blood Count 2.88 M/uL (4.20-5.40); White Blood Count 4.51 K/ul (4.8-10.8)
[2024-10-04 08:22] LABS: BUN Creatinine Ratio 6.4 (10-20); Calcium 8.6 mg/dl (8.6-10.3); Potassium 3.8 mmol/L (3.5-5.1)
[2024-10-04] MEDS: ONDANSETRON INJ 2 MG/ML 2 ML VIAL IV PRN (10:47)
[2024-10-04 10:56] VITALS: RESP 20; TEMP 98.1; O2SAT 93
--- NOTE | 2024-10-04 12:37 | Hospitalist Progress Note ---
Date of Service October 04, 2024 Assessment & Plan (1) Syncope: Plan: 69-year-old female with past medical history significant for hypothyroidism, osteoporosis, depression, hyperlipidemia presents with syncope. Patient [place] she [place] from [place]. Since Monday evening having cough and sore throat. Today morning she had a fever. In the evening when she was in the kitchen she was feeling sick to her stomach. [place] dizzy. Still was holding the counter. Then she passed out and next thing she remembers being in the ambulance but not totally awake until in the ER. Later in the ER code purple was called as patient passed out while she was micturating at bedside commode. Seems she passed out for 20 to 30 seconds. Left facial laceration started to bleed and stopped after pressure holding. Influenza A CAP--POA Syncopal episode likely vasovagal Left facial laceration/ecchymosis Patient presented with weakness, dizziness leading to her syncopal episodes. Had fall and laceration on left side of the face. --CT head, CT cervical spine and CT abdomen pelvis without any acute finding --CT chest:Multiple clusters of tiny centrilobular nodular opacities with ground-glass attenuation are noted involving anterior segment of right upper lobe, right middle lobe and right lower lobes with branching pattern.- possibility of infective etiology/bronchiolitis. No obvious trauma related abnormality is seen. --ECHO: EF 60 to 65%. Mild mitral regurgitation. Trace tricuspid regurgitation. No findings to suggest pulmonary hypertension. Mild aortic root dilatation --Blood Cultures: Negative to date --Orthostatics noncontributory --Continue Zosyn, Tamiflu>> transition to Augmentin, Tamiflu on discharge --Transition vancomycin to doxycycline -- Wean off of supplemental oxygen as able -- Received IV fluids Appreciate cardiology input fall precautions PT OT recommends to return home 2 step: Did not qualify for supplemental oxygen Plan to discharge home today Premature ventricular contractions Monitor and replete electrolytes as needed Consider ZIO monitor as outpatient Hypothyroidism Continue levothyroxine Hyperlipidemia Continue statin Depression continue citalopram DVT prophylaxis SCDs for now CODE STATUS Full code Disposition home Admission and Anticipated Discharge Date Admission Date: September 30, 2024 Subjective Patient is seen and examined at bedside Doing well today No new complaints Less cough today Denies any dizziness, dyspnea, vomiting, abdominal pain Weaned off of supplemental oxygen Review of Systems Review of Systems: All systems reviewed & are unremarkable except as noted in Subjective Physical Exam Physical Exam: Physical Exam: Vitals signs as noted above General Appearance: Thin, frail, no apparent distress Head: normocephalic, +traumatic , Left facial ecchymosis, mild swelling, tender,+Laceration Eyes: normal inspection, EOMI Neck: supple, Trachea midline Respiratory/Chest: Decreased breath sounds, CTA, No accessory muscle use Cardiovascular: S1, S2, No murmur Abdomen/GI:Soft, Non tender, Bowel sounds present Extremities/Musculoskeletal:normal inspection, no edema Neurologic/Psych:AAOX3, grossly no focal neurological deficits Skin: normal color, warm Results & Data Results & Data Vital Signs (Past 12 Hours) Vital Signs Temp Pulse Pulse Pulse Pulse Resp Resp 10/04/24 10:54 36.7 C 53 L 20 10/04/24 09:25 86 77 22 10/04/24 08:07 10/04/24 07:59 36.8 C 56 L 17 10/04/24 07:40 51 L 10/04/24 02:53 36.8 C 58 L 20 Resp BP Pulse Ox Pulse Ox Pulse Ox O2 Del Method O2 Flow Rate 10/04/24 10:54 136/64 93 Room Air 10/04/24 09:25 18 89 L 91 10/04/24 08:07 Nasal Cannula 2 10/04/24 07:59 143/70 H 95 Nasal Cannula 3 10/04/24 07:40 10/04/24 02:53 118/68 96 Nasal Cannula 2 Laboratory Results Short CBC 10/04/24 Range/Units 07:05 WBC 4.51 L (4.8-10.8) K/ul Hgb 8.5 L (12.0-16.0) g/dl Hct 26.0 L (37.0-47.0) % Plt Count 133 (130-400) K/uL BMP 10/04/24 07:05 Sodium 142 Potassium 3.8 Chloride 110 H Carbon Dioxide 27 BUN 5 L Creatinine 0.78 Glucose 91 Calcium 8.6 (1) Syncope Syncope type: unspecified Qualified Code(s): R55 - Syncope and collapse
--- NOTE | 2024-10-04 12:46 | Discharge Summary ---
Date of Service October 04, 2024 Admission HPI Per Admitting Provider 69-year-old female with past medical history significant for hypothyroidism, osteoporosis, depression, hyperlipidemia presents with syncope. [place]. Since Monday evening having cough and sore throat. Today morning she had a fever. In the evening when she was in the kitchen she was feeling sick to her stomach. Nunnelly dizzy. Was holding the counter. Then she passed out and next thing she remembers being in the ambulance but not totally awake until in the ER. As per the ER initially she was difficult to get history as she was obtunded. There was trauma to the left side of the face. Some blood seen in the left side of the head. Current alert and oriented and able to give her history. Currently denies any headache. Vision is okay. Currently no nausea. Denies any chest pain or shortness of breath. No abdominal pain. Denies any diarrhea or constipation. Micturating okay. Later in the ER code purple was called as patient passed out while she wa s micturating at bedside commode. Seems she passed out for 20 to 30 seconds. She is back in bed now. Left facial laceration started to bleed and stopped after pressure holding. Currently vitals are okay and denies any chest pain or nausea. Past medical history. As mentioned above. Past surgical history. Colonoscopy. Dilatation curettage. Left jaw surgery. Right shoulder arthroscopy. Social history. . Quit smoking in 1971. Alcohol wine on occasion. No drug use. Family history. Son has allergies. Asthma. Psoriasis. Stroke. Mother has osteoporosis. Thyroid disorder. Mental disorder. Father has Parkinson's disease. Maternal grandfather had cancer. Admission Exam Per Admitting Provider General-alert and awake. Head- laceration seen on left sie of face close to ice about 1cm long Eyes- PERRL. ENT- oropharynx clear Neck- supple, no JVD. Lungs- clear to auscultation no wheezing or crackles Heart- regular rate and rhythm; no murmur, no gallop. Abdomen- normal bowel sounds, soft, nontender, no distension Extremities- no pretibial edema, no erythema seen. Neuro- alert, oriented PERRL, no facial palsy; no dysarthria; motor 5/5 bilaterally; co ordination of movements nor Principal Diagnosis Influenza A infection Community-acquired pneumonia Syncopal episode Left facial laceration Discharge Data Allergies Allergy/AdvReac Type Severity Reaction Status Date / Time No Known Allergies Allergy Unverified 07/08/21 20:10 Consultations 09/30/24 22:06 ED Decision to Admit Stat 10/01/24 08:00 Consult Cardiology Routine Procedures Performed Laboratory Results WBC 4.51 K/ul (4.8-10.8) L 10/04/24 07:05 RBC 2.88 M/uL (4.20-5.40) L 10/04/24 07:05 Hgb 8.5 g/dl (12.0-16.0) L 10/04/24 07:05 POC Hgb 10.5 g/dl (12.0-16.0) L 09/30/24 20:17 Hct 26.0 % (37.0-47.0) L 10/04/24 07:05 POC Hct 31 % (37-47) L 09/30/24 20:17 MCV 90.3 fL (80.0-100.0) 10/04/24 07:05 MCH 29.5 pg (25.0-34.0) 10/04/24 07:05 MCHC 32.7 g/dL (32.0-36.0) 10/04/24 07:05 RDW Std Deviation 42.4 fL (36.4-46.3) 10/04/24 07:05 RDW Coeff of Jazmin 12.8 % (11.5-14.5) 10/04/24 07:05 Plt Count 133 K/uL (130-400) 10/04/24 07:05 MPV 10.9 fL (9.4-12.4) 10/04/24 07:05 Immature Gran % (Auto) 0.2 % 10/02/24 05:36 Neut % (Auto) 75.1 % 10/02/24 05:36 Lymph % (Auto) 19.4 % 10/02/24 05:36 Mchenry % (Auto) 4.6 % 10/02/24 05:36 Eos % (Auto) 0.5 % 10/02/24 05:36 Baso % (Auto) 0.2 % 10/02/24 05:36 Neut # (Auto) 4.38 K/uL (1.40-6.50) 10/02/24 05:36 Lymph # (Auto) 1.13 K/uL (1.20-3.40) L 10/02/24 05:36 Mchenry # (Auto) 0.27 K/uL (0.11-0.59) 10/02/24 05:36 Eos # (Auto) 0.03 K/uL (0.00-0.50) 10/02/24 05:36 Baso # (Auto) 0.01 K/uL (0.00-0.20) 10/02/24 05:36 Immature Gran # (Auto) 0.01 K/uL (0.01-0.20) 10/02/24 05:36 Polychromasia 1+ 10/02/24 05:36 PT 10.4 Seconds (9.0-12.0) 09/30/24 20:14 INR 1.0 (0.9-1.1) 09/30/24 20:14 APTT 23 Seconds (21-31) 09/30/24 20:14 PTT Ratio 0.9 09/30/24 20:14 POC Sodium 137 mmol/L (135-144) 09/30/24 20:17 Sodium 142 mmol/L (136-145) 10/04/24 07:05 POC Potassium 3.4 mmol/L (3.3-5.0) 09/30/24 20:17 Potassium 3.8 mmol/L (3.5-5.1) 10/04/24 07:05 POC Chloride 104 mmol/L (101-112) 09/30/24 20:17 Chloride 110 mmol/L (98-107) H 10/04/24 07:05 Carbon Dioxide 27 mmol/L (21-32) 10/04/24 07:05 POC Total CO2 21 mmol/L (24-31) L 09/30/24 20:17 Anion Gap 5 (3-11) 10/04/24 07:05 POC Anion Gap 17.0 mmol/L (16-25) 09/30/24 20:17 POC BUN 15 mg/dl (7-18) 09/30/24 20:17 BUN 5 mg/dl (6-23) L 10/04/24 07:05 Creatinine 0.78 mg/dl (0.6-1.2) 10/04/24 07:05 POC Creatinine 1.1 mg/dl (0.6-1.3) 09/30/24 20:17 Est Cr Clr Drug Dosing 58.0 ml/min 10/04/24 07:05 eGFR 81.66 10/04/24 07:05 BUN/Creatinine Ratio 6.4 (10-20) L 10/04/24 07:05 Glucose 91 mg/dl (70-99(Fasting)) 10/04/24 07:05 POC Glucose (other) 135 mg/dl (70-99) H 09/30/24 20:17 Calcium 8.6 mg/dl (8.6-10.3) 10/04/24 07:05 POC Ioniz Calcium Rip 1.18 mmol/l (1.12-1.32) 09/30/24 20:17 Magnesium 2.1 mg/dl (1.7-2.4) 10/03/24 05:35 Total Bilirubin 0.6 mg/dl (0.2-1.0) 09/30/24 20:14 AST 46 U/L (13-39) H 09/30/24 20:14 ALT 39 U/L (7-52) 09/30/24 20:14 Alkaline Phosphatase 45 U/L (34-104) 09/30/24 20:14 Total Creatine Kinase 221 U/L (26-192) H 09/30/24 20:14 Troponin I High Sens 9.5 pg/ml (0-14) 10/01/24 10:15 Total Protein 6.2 gm/dl (6.0-8.3) 09/30/24 20:14 Albumin 3.9 gm/dl (3.4-5.0) 09/30/24 20:14 Globulin 2.3 gm/dl (2.5-4.0) L 09/30/24 20:14 Albumin/Globulin Ratio 1.7 (0.9-2) 09/30/24 20:14 Lipase 17 U/L (11-82) 09/30/24 20:14 Procalcitonin 0.65 ng/ml (0-0.5) H 10/03/24 05:35 TSH 0.757 uIu/ml (0.300-4.500) 10/01/24 06:44 Urine Color Yellow 10/01/24 00:05 Urine Appearance Clear (Clear) 10/01/24 00:05 Urine pH 5.0 (4.5-7.5) 10/01/24 00:05 Ur Specific Thelma > 1.045 (1.000-1.030) H 10/01/24 00:05 Urine Protein 1+ (Negative) H 10/01/24 00:05 Urine Glucose (UA) Negative (Negative) 10/01/24 00:05 Urine Ketones 2+ (Negative) H 10/01/24 00:05 Urine Blood Negative (Negative) 10/01/24 00:05 Urine Nitrite Negative (Negative) 10/01/24 00:05 Urine Bilirubin Negative (Negative) 10/01/24 00:05 Urine Urobilinogen Negative (Negative) 10/01/24 00:05 Ur Leukocyte Esterase Negative (Negative) 10/01/24 00:05 Urine WBC (Auto) 0-5 /hpf (0-5) 10/01/24 00:05 Urine RBC (Auto) 0-2 /hpf (0-2) 10/01/24 00:05 U Hyaline Cast (Auto) 0-2 /lpf (0-2) 10/01/24 00:05 U Epithel Cells (Auto) 0-2 /hpf (0-2) 10/01/24 00:05 Urine Bacteria (Auto) None Seen (None Seen) 10/01/24 00:05 Nasal Influ A H1 2008 PCR DETECTED (NotDetected) A 09/30/24 23:55 Nasal Screen MRSA (PCR) Negative (Negative) 10/01/24 Unknown Random Vancomycin 10.1 mcg/ml (10-20) 10/03/24 10:42 Ethyl Alcohol mg/dL < 10.0 mg/dl (<10.0) 09/30/24 20:14 Adenovirus (PCR) Not Detected (NotDetected) 09/30/24 23:55 B. pertussis DNA (PCR) Not Detected (NotDetected) 09/30/24 23:55 B.parapertussis DNA PCR Not Detected (NotDetected) 09/30/24 23:55 C. pneumoniae DNA (PCR) Not Detected (NotDetected) 09/30/24 23:55 Coronavirus OC43 (PCR) Not Detected (NotDetected) 09/30/24 23:55 Coronavirus HKU1 (PCR) Not Detected (NotDetected) 09/30/24 23:55 Coronavirus 229E (PCR) Not Detected (NotDetected) 09/30/24 23:55 SARS-CoV-2 (PCR) Not Detected (NotDetected) 09/30/24 23:55 Coronavirus NL63 (PCR) Not Detected (NotDetected) 09/30/24 23:55 Human Metapneumovir PCR Not Detected (NotDetected) 09/30/24 23:55 Influenza Type B (PCR) Not Detected (NotDetected) 09/30/24 23:55 M. pneumoniae (PCR) Not Detected (NotDetected) 09/30/24 23:55 Parainfluenza 1 (PCR) Not Detected (NotDetected) 09/30/24 23:55 Parainfluenza 2 (PCR) Not Detected (NotDetected) 09/30/24 23:55 Parainfluenza 3 (PCR) Not Detected (NotDetected) 09/30/24 23:55 Parainfluenza 4 (PCR) Not Detected (NotDetected) 09/30/24 23:55 RSV (PCR) Not Detected (NotDetected) 09/30/24 23:55 Entero/Rhino (PCR) Not Detected (NotDetected) 09/30/24 23:55 Blood Type O Positive 09/30/24 20:18 Antibody Screen NEGATIVE 09/30/24 20:18 Impressions Abdomen/Pelvis CT 09/30/24 20:12 Exam(s): CT ABDOMEN + PELVIS With Contrast IV Amt: 93 cc opti 320 EXAM: CT Abdomen and Pelvis With Intravenous Contrast CLINICAL HISTORY: Reason for exam: Trauma. TECHNIQUE: Axial computed tomography images of the abdomen and pelvis with intravenous contrast. CTDI is 14.22 mGy and DLP is 736.72 mGy-cm. Automated exposure control was utilized for the study. A dose lowering technique was utilized adhering to the principles of ALARA. CONTRAST: Patient received 93 cc opti 320 of IV contrast COMPARISON: 07/08/2021 FINDINGS: ABDOMEN: Liver: Unremarkable. Gallbladder and bile ducts: Unremarkable. Pancreas: Unremarkable. Spleen: Unremarkable. Adrenals: Unremarkable. Kidneys and ureters: Unremarkable. No obstructing stones. No hydronephrosis. Stomach and bowel: Excess colonic stool burden. PELVIS: Appendix: No findings to suggest acute appendicitis. Bladder: Unremarkable. Reproductive: Unremarkable as visualized. ABDOMEN and PELVIS: Intraperitoneal space: Unremarkable. No free air. No significant fluid collection. Bones/joints: No acute fracture. Soft tissues: Unremarkable. Vasculature: Unremarkable. Lymph nodes: Unremarkable. IMPRESSION: 1. No traumatic injury. 2. Excess colonic stool burden. Correlate for constipation. Electronically signed by: Carson Cristobal MD 09/30/24 21:35 PM Chest X-Ray 10/01/24 01:44 EXAM: XR chest 1V portable CLINICAL HISTORY: Aspiration TECHNIQUE: An X-ray image of the chest is obtained in AP projection. COMPARISON: CR 07/08/2021. FINDINGS: Pulmonary Parenchyma: Lungs are clear bilaterally. No evidence of consolidation, collapse, or focal opacities. No pulmonary nodules are identified. Prominent bronchovascular markings and both hilar shadows, suggestive of pulmonary congestion or mild infection. Clinical correlation is advised. No evidence of pleural effusion or pleural thickening. Heart and Mediastinum: Heart size and shape are normal. No mediastinal widening or masses. No hilar or mediastinal lymphadenopathy. Bony Thorax: Bony thorax appears intact without fractures or deformities. Soft Tissues: Soft tissues overlying the chest wall are unremarkable. IMPRESSION: 1. No gross airspace opacities. 2. Prominent bronchovascular markings and both hilar shadows, suggestive of pulmonary congestion or mild infection. Clinical correlation is advised. 3. No significant interval changes. Electronically signed by Eddie Arthur 10-01-2024 04:[address] 10/01/24 03:28 EXAM: CT cervical spine wo con CLINICAL HISTORY: fall TECHNIQUE: Computed tomography of the cervical spine performed without intravenous contrast. Contiguous axial images were obtained from the skull base to T2, with sagittal and coronal reformatted images reconstructed from the axial data. CT scan was performed according to ALARA (as low as reasonable achievable). COMPARISON: 30 September 2024 FINDINGS: Loss of cervical lordosis - suggest possibility of muscle spasm/positional. Degenerative changes involving cervical spine in the form of multilevel marginal osteophytes, disc space reduction and facetal arthrosis. Cervical vertebral bodies are normal in height and alignment, with no evidence of fracture or subluxation. Lateral masses of C1 are symmetrical, and the dens is intact. Prevertebral soft tissues are not widened. The remaining suprahyoid and infrahyoid soft tissues in the neck are unremarkable. C2-C3: No disc bulge, mass effect on the cord or neuroforaminal narrowing. C3-C4: No disc bulge, mass effect on the cord or neuroforaminal narrowing. C4-C5: No disc bulge, mass effect on the cord or neuroforaminal narrowing. C5-C6: No disc bulge, mass effect on the cord or neuroforaminal narrowing. C6-C7: No disc bulge, mass effect on the cord or neuroforaminal narrowing. C7-T1: No disc bulge, mass effect on the cord or neuroforaminal narrowing. Thyroid gland appears unremarkable. IMPRESSION: 1.No acute fracture or subluxation in the cervical spine. 2. Mild Cervical spondylosis No other new interval abnormality since prior study. Electronically signed by Shyam Tavera 10-01-2024 04:[address] 10/01/24 03:28 EXAM: CT chest diagnostic wo con CLINICAL HISTORY: fall. TECHNIQUE: Contiguous axial images were obtained from the neck base through the upper abdomen without contrast. In addition, sagittal and coronal reconstructions were performed to potentially increase the sensitivity for the detection of disease. CT scan was performed according to ALARA (as low as reasonable achievable). COMPARISON: None. FINDINGS: Multiple clusters of tiny centrilobular nodular opacities with ground-glass attenuation are noted involving anterior segment of right upper lobe, right middle lobe and right lower lobes with branching pattern. The central airways are patent. There are no pleural effusions. No pneumothorax is seen. Evaluation of the mediastinum and melvi is limited due to the lack of intravenous contrast. No axillary or mediastinal adenopathy is identified. The thyroid is unremarkable. The heart, aorta, and pulmonary arteries are of normal size and configuration. There are no appreciable coronary artery and aortic atherosclerotic calcifications. No pericardial effusion is identified. Imaged portions of the upper abdomen are unremarkable. No aggressive appearing osseous lesions are identified. IMPRESSION: 1.Multiple clusters of tiny centrilobular nodular opacities with ground-glass attenuation are noted involving anterior segment of right upper lobe, right middle lobe and right lower lobes with branching pattern.- possibility of infective etiology/bronchiolitis. 2. No obvious trauma related abnormality is seen. Electronically signed by Shyam Tavera 10-01-2024 04:[address] 10/01/24 03:28 EXAM: CT head/brain wo con CLINICAL HISTORY: fall TECHNIQUE: Multiple axial images are obtained from the skull base to the vertex without contrast. CT scan was performed according to ALARA (as low as reasonable achievable). COMPARISON: 30 September 2024. FINDINGS: There is cerebral atrophy. No evidence of space occupying lesion, hemorrhage, edema, mass effect, midline shift, extra axial collection, or hydrocephalus is noted. Basal cisterns are symmetric and normal in size and configuration. There are scattered periventricular hypodensities as can be seen with chronic microvascular ischemic changes. The bustos-white matter differentiation is preserved. Minimal bilateral maxillary sinusitis.- reduced as compared to prior. Rest of paranasal sinuses and mastoid air cells are well aerated. Orbital contents are within normal limits. Bony structures are intact. IMPRESSION: 1. No evidence of acute intracranial abnormality is demonstrated. 2. Chronic microvascular ischemic changes. 3. Cerebral atrophy. Electronically signed by Shyam Tavera 10-01-2024 04:37 AM Ordered Studies 09/30/24 20:12 CT abd pelvis IV con only Stat CT cervical spine wo con Stat CT chest diagnostic w con Stat CT head/brain wo con Stat 10/01/24 03:28 CT cervical spine wo con Urgent CT chest diagnostic wo con Urgent CT head/brain wo con Urgent Hospital Course (1) Syncope: 69-year-old female with past medical history significant for hypothyroidism, osteoporosis, depression, hyperlipidemia presents with syncope. [place]. Since Monday evening having cough and sore throat. Today morning she had a fever. In the evening when she was in the kitchen she was feeling sick to her stomach. Nunnelly dizzy. Still was holding the counter. Then she passed out and next thing she remembers being in the ambulance but not totally awake until in the ER. Later in the ER code purple was called as patient passed out while she was micturating at bedside commode. Seems she passed out for 20 to 30 seconds. Left facial laceration started to bleed and stopped after pressure holding. Influenza A CAP--POA Syncopal episode likely vasovagal Left facial laceration/ecchymosis Patient presented with weakness, dizziness leading to her syncopal episodes. Had fall and laceration on left side of the face. --CT head, CT cervical spine and CT abdomen pelvis without any acute finding --CT chest:Multiple clusters of tiny centrilobular nodular opacities with ground-glass attenuation are noted involving anterior segment of right upper lobe, right middle lobe and right lower lobes with branching pattern.- possibility of infective etiology/bronchiolitis. No obvious trauma related abnormality is seen. --ECHO: EF 60 to 65%. Mild mitral regurgitation. Trace tricuspid regurgitation. No findings to suggest pulmonary hypertension. Mild aortic root dilatation --Blood Cultures: Negative to date --Orthostatics noncontributory --Continue Zosyn, Tamiflu>> transition to Augmentin, Tamiflu on discharge --Transition vancomycin to doxycycline -- Wean off of supplemental oxygen as able -- Received IV fluids Appreciate cardiology input fall precautions PT OT recommends to return home 2 step: Did not qualify for supplemental oxygen Plan to discharge home today Premature ventricular contractions Monitor and replete electrolytes as needed Consider ZIO monitor as outpatient Hypothyroidism Continue levothyroxine Hyperlipidemia Continue statin Depression continue citalopram DVT prophylaxis SCDs for now CODE STATUS Full code Disposition home Total Time Total Time Spent Total Time Spent (In Minutes): 54 minutes Discharge Plan Discharge Items Patient Disposition: Home - Self-Care Reason For Visit: SYNCOPE Discharge Diagnosis: Influenza A infection Community-acquired pneumonia Syncopal episode Left facial laceration Activity: Per Instructions section Exercise/Sports: Gradually increase as tolerated Non-emergency contact: Primary Care Provider Call non-emergency contact if: you have any medication questions, your symptoms worsen, your pain is concerning for you, you have a fever, your temperature is above 101.5, your wound has increased redness, your wound has increased drainage and your wound pain has increased Follow-up/Referrals: Jen Luna MD [Primary Care Provider] - (Date & Time 10/10/2024 11:20 AM Provider: Jen Luna MD General Internal Medicine [facility] ) Diet: Heart Healthy Addtl Attending Provider Instructions: Follow-up with your primary care physician Dr. Jen Luna in 1 week --Complete Tamiflu, oral antibiotic course (doxycycline, Augmentin ) as prescribed. --Your final blood cultures are pending at the time of discharge. Follow-up with your physician for results. -- Discuss with your physician for ZIO monitor placement as outpatient to rule out arrhythmias. Seek immediate medical attention if your symptoms reoccur or worsen Please take all medications as instructed on discharge list below. Please call if you have any questions or problems. You can reach a [facility] hospitalist on duty at [facility] 24 hours a day by calling [phone] Pending Studies at Discharge: Yes Studies:: Blood cultures Stand-Alone Forms: My [facility], Smoking Cessation Medications and DC Order Prescriptions: New doxycycline hyclate 100 mg Capsule 100 mg PO BID Qty: 7 0RF amoxicillin-pot clavulanate 875-125 mg Tablet 1 tab PO BIDM Qty: 7 0RF oseltamivir 30 mg capsule 30 mg PO BID Qty: 2 0RF Continued atorvastatin 20 mg tablet 20 mg PO DAILY citalopram 40 mg tablet 40 mg PO DAILY levothyroxine [Synthroid] 50 mcg tablet 50 mcg PO DAILY Discharge Orders: Discharge Order (Routine); Ordered 10/04/24 Ordered By: Moises Felder Admission Data Admit Date/Time: 09/30/24 23:53 Attending Provider: Moises Felder Admit Provider: Les Luna Primary Care Provider: Jen Luna Other Providers: Les Luna
[2024-10-04 13:05] VITALS: BP 120/53; PULSE 60
[2024-10-04] MEDS: AMOXICILLIN/CLAVULANATE 875 MG TAB PO SCH (13:58)
== END 2024-10-04 14:15 | disposition home or self-care (01) | DRG 195 ==
LOC: ED 20:07 → SUATTDRO 23:53 → EDINP 23:53 → 2E 10-01 00:58

== ENCOUNTER 2025-07-16 23:22 | Observation (INO) ==
[2025-07-16] MEDS: ONDANSETRON INJ 2 MG/ML 2 ML VIAL IV STA (23:33)
[2025-07-16] MEDS: SODIUM CHLORIDE 0.9% 500 ML IV STA (23:33)
--- NOTE | 2025-07-16 23:35 | Emergency Department Note ---
History of Present Illness General Chief complaint: Vomiting Stated complaint: N/V/D Time Seen by Provider: 07/16/25 23:27 History of Present Illness 69-year-old female with past medical history significant for hypothyroidism, osteoporosis, depression, hyperlipidemia presents with nausea vomiting diarrhea and upset stomach today. No recent travel. No bad food exposure. No sick contacts. Patient denies chest pain, dyspnea, fever, chills. Home Medications Medication Instructions Recorded Confirmed Type atorvastatin 20 mg tablet 20 mg PO DAILY 07/08/21 09/30/24 History citalopram 40 mg tablet 40 mg PO DAILY 07/08/21 09/30/24 History levothyroxine 50 mcg tablet 50 mcg PO DAILY 07/08/21 09/30/24 History (Synthroid) amoxicillin 875 mg-potassium 1 tab PO BIDM #7 tabs 10/04/24 Rx clavulanate 125 mg tablet doxycycline hyclate 100 mg capsule 100 mg PO BID #7 caps 10/04/24 Rx oseltamivir 30 mg capsule 30 mg PO BID #2 caps 10/04/24 Rx Allergies Allergy/AdvReac Type Severity Reaction Status Date / Time No Known Allergies Allergy Unverified 07/08/21 20:10 Past Med/Surg History Problem List (Updated 07/17/25 @ 02:26 by Atiya Ko PA-C) Dehydration (Acute) Nausea, vomiting, and diarrhea (Acute) Vasovagal near syncope PVCs (premature ventricular contractions) Influenza A Fall (Acute) Contusion of face (Acute) Syncope (Acute) Medical History Hypothyroidism Hyperlipidemia Family History Other Family history non-contributory Social History Smoking Status: Former smoker Hx Alcohol Use: Yes Alcohol type: beer Hx Substance Use: No Preferred Language: Micronesian Communication Ability: Impaired Vision Teacher Required: No Beliefs That Will Affect Care: None Current Living Situation: Spouse Feels Safe at Home: Yes Assistive Devices: None Review of Systems A total of 10 systems reviewed and were otherwise negative Physical Exam Vital Signs Vital Signs - 24 hr 07/16/25 23:27 07/16/25 23:43 07/17/25 00:21 Temperature 36.4 C Temperature Source Oral Pulse Rate 73 64 61 Pulse Rate from SpO2 Sensor 61 Respiratory Rate 18 26 H Blood Pressure 140/47 L Blood Pressure Mean 78 Pulse Oximetry 98 100 Oxygen Delivery Method Room Air Sepsis Recent Fever Within 48 Hours No Sepsis New/Unexplained Change in Mental Status No Sepsis Action Taken by Nursing No Action Required 07/17/25 00:30 07/17/25 01:00 07/17/25 02:00 Temperature Temperature Source Pulse Rate 68 71 62 Pulse Rate from SpO2 Sensor 63 Respiratory Rate 30 H 16 21 Blood Pressure 124/61 117/59 L Blood Pressure Mean 82 78 Pulse Oximetry 100 96 Oxygen Delivery Method Sepsis Recent Fever Within 48 Hours Sepsis New/Unexplained Change in Mental Status Sepsis Action Taken by Nursing VITALS: Vitals are noted on the nurse's note and reviewed by myself. Vital signs stable. GENERAL: Pleasant female vomiting, in no acute distress, nondiaphoretic, well- developed well-nourished. SKIN: Capillary reflex less than 2 seconds. HEENT: Normocephalic. PERRLA. EOMI. Nares patent. Mucous membranes moist. Neck is supple without nuchal rigidity. HEART: Regular rate and rhythm LUNGS: Clear to auscultation bilaterally without wheezes, rales or rhonchi. No retractions or accessory muscle use. ABDOMEN: Positive bowel sounds x 4. Normal tympanic percussion. Soft, mild diffuse tenderness, without masses or organomegaly. Johnson sign negative. No guarding or rebound tenderness. no CVA tenderness MUSCULOSKELETAL: No gross musculoskeletal defects. NEURO: Patient was alert and oriented to person place and time. No focal neurological deficits. Course Administered Medications Discontinued Medications Sodium Chloride (Nss) 500 mls @ 999 mls/hr IV .Q31M STA Stop: 07/17/25 00:00 Last Infusion: 07/17/25 01:32 Dose: Infused Documented By: Admin: 07/16/25 23:33 Dose: 999 mls/hr Documented By: MARYCARMEN Famotidine (Pepcid 20mg Iv Push) 20 mg in 5 mls @ 2.5 mls/min IV NOW STA Stop: 07/16/25 23:31 Last Admin: 07/16/25 23:36 Dose: 2.5 mls/min Documented By: MARYCARMEN Ioversol (Optiray 320 100ml) 94 ml IV ONCE ONE Stop: 07/17/25 00:42 Last Admin: 07/17/25 00:41 Dose: 94 ml Documented By: DESTINY Ondansetron HCl (Ondansetron Inj 2 Mg/Ml 2 Ml Vial) 4 mg IV NOW STA Stop: 07/16/25 23:31 Last Admin: 07/16/25 23:33 Dose: 4 mg Documented By: MARYCARMEN Medical Decision Making Medical Records Attestation: I reviewed the patient's medical records. Home Medications Current Medication List: was personally reviewed by me Laboratory Data Attestation: I reviewed the patient's lab results. 07/16/25 23:30 07/16/25 23:30 Lab Results 07/16/25 07/16/25 Range/Units 23:30 23:52 WBC 14.94 H (4.8-10.8) K/ul RBC 3.56 L (4.20-5.40) M/uL Hgb 11.0 L (12.0-16.0) g/dL Hct 32.0 L (37.0-47.0) % MCV 89.9 (80.0-100.0) fL MCH 30.9 (25.0-34.0) pg MCHC 34.4 (32.0-36.0) g/dL RDW Std Deviation 41.0 (36.4-46.3) fL RDW Coeff of Jazmin 12.5 (11.5-14.5) % Plt Count 206 (130-400) K/uL MPV 10.5 (9.4-12.4) fL Immature Gran % (Auto) 0.5 % Neut % (Auto) 79.6 % Lymph % (Auto) 12.5 % Wirt % (Auto) 5.7 % Eos % (Auto) 1.3 % Baso % (Auto) 0.4 % Neut # (Auto) 11.89 H (1.40-6.50) K/uL Lymph # (Auto) 1.87 (1.20-3.40) K/uL Wirt # (Auto) 0.85 H (0.11-0.59) K/uL Eos # (Auto) 0.20 (0.00-0.50) K/uL Baso # (Auto) 0.06 (0.00-0.20) K/uL Immature Gran # (Auto) 0.07 (0.01-0.20) K/uL Sodium 139 (136-145) mmol/L Potassium 3.7 (3.5-5.1) mmol/L Chloride 107 (98-107) mmol/L Carbon Dioxide 24 (21-32) mmol/L Anion Gap 8 (3-11) BUN 19 (6-23) mg/dl Creatinine 0.91 (0.6-1.2) mg/dl Est Cr Clr Drug Dosing 46.1 ml/min eGFR 67.45 BUN/Creatinine Ratio 20.9 H (10-20) Glucose 205 H (70-99(Fasting)) mg/dl Calcium 9.6 (8.6-10.3) mg/dl Magnesium 2.2 (1.7-2.4) mg/dl Total Bilirubin 0.6 (0.2-1.0) mg/dl AST 30 (13-39) U/L ALT 29 (7-52) U/L Alkaline Phosphatase 46 (34-104) U/L Troponin I High Sens 3.7 (0-14) pg/ml Total Protein 6.6 (6.0-8.3) gm/dl Albumin 4.0 (3.4-5.0) gm/dl Globulin 2.6 (2.5-4.0) gm/dl Albumin/Globulin Ratio 1.5 (0.9-2) Lipase 12 (11-82) U/L SARS-CoV-2 (PCR) NEGATIVE (Negative) Influenza Type A (PCR) Negative (Neg) Influenza Type B (PCR) Negative (Neg) RSV (RT-PCR) Negative (Neg) Imaging Data Attestation: I personally reviewed and interpreted this imaging study as follows: Radiologist's Impression: Abdomen/Pelvis CT 07/16/25 23:30 EXAM: CT abd pelvis IV con only CLINICAL HISTORY: abd pain, v/d TECHNIQUE: Multiple contiguous axial images were obtained from the level of diaphragm to the pubis symphysis. This study was acquired after the IV administration of iodinated contrast material, given the patient's indications for the examination. If IV contrast material had not been administered, the likelihood of detecting abnormalities relevant to the patient's condition would have been substantially decreased. Coronal and sagittal reformatted images were generated and reviewed to improve anatomic localization and optimize lesion detection. CT scan was performed according to ALARA (as low as reasonably achievable). COMPARISON: CT, 09/30/2024 19:34:09 PATROL COMMANDER FINDINGS: The visualized lung bases are clear. ABDOMEN/PELVIS: The liver is normal in size and attenuation. No focal liver lesions are seen. There is no intra or extrahepatic biliary ductal dilatation. Hepatic vasculature is patent. The gallbladder is unremarkable. The spleen, pancreas, and adrenal glands are unremarkable. The kidneys are normal in size and attenuation. There is no hydronephrosis or perinephric fat stranding. No renal calculi or renal masses are identified. The ureters are normal in caliber and no ureteral calculi are seen. The bladder is normal in contour. Uterus and bilateral adnexa are unremarkable. Mild apparent wall thickening seen in sigmoid and descending colon. Redundant large bowel with cecum seen in left anterior abdomen. No evidence of appendicitis. No adenopathy or fluid collections are seen. The aorta is normal in caliber. No aggressive appearing osseous lesions are identified. IMPRESSION: 1. Mild apparent wall thickening seen in sigmoid and descending colon. - Possibly due to collapse lumen vs early changes of colitis. Not seen in prior scan. Advised clinical correlation. 2. No any other intra-abdominal pathology detected. Electronically signed by Shyam Tavera 07-17-2025 02:21 AM MDM Narrative Prior records/ancillary studies reviewed. Triage Nursing notes reviewed. Additional history obtained from nursing The patient's history was concerning for nausea, vomiting, diarrhea, and abdominal pain. Differential diagnosis: Etiologies such as gastroenteritis, food borne illness, infections, appendicitis, diverticulitis, inflammatory bowel disease, obstruction, GI bleed, biliary pathology, as well as others were entertained. Physical examination findings: As above. Abdominal examination revealed tenderness. Vital signs reviewed and revealed stable. ER treatment provided: IV hydration IV fluids, Zofran and Pepcid were ordered On reassessment the patient felt better. Patient was tolerating p.o. intake. Diagnostics interpretation by me: EKG ordered for vomiting EKG: Normal sinus, normal intervals, no acute ST-T wave changes. Impression normal sinus rhythm independently interpreted by myself The labs Independently Interpreted by myself revealed hyperglycemia without DKA. Negative COVID Leukocytosis, mild anemia Imaging studies: Imaging was reviewed and read by radiology Consultation: A consultation was placed with the hospitalist. The case was discussed and diagnostics were reviewed. The patient was evaluated in the ER for further treatment. This appears to be consistent with vomiting and diarrhea with dehydration most likely viral in etiology. Patient was still feeling quite weak and would like to stay for admission. CT was negative for acute findings. Medicine was consulted case discussed. She will be evaluated for admission. By the evaluation outlined above emergent etiologies such as appendicitis, diverticulitis, obstruction, cardiac sources, mesenteric ischemia, aortic pathology, inflammatory bowel disease, renal colic, PUD, biliary pathology, UTI, as well as others were deemed relatively unlikely. The pt informed about the findings as listed above. All questions were answered and pleased with the treatment. The chart was completed utilizing [employer] Speech voice recognition software. Grammatical errors, random word insertions, pronoun errors, and incomplete sentences are an occassional consequence of this system due to software limitations, ambient noise, and hardware issues. Any formal questions or concerns about the content, text, or information contained within the body of this dictation should be directly addressed to the physician political science research assistant for clarification. Impression & Plan Nausea, vomiting, and diarrhea, Dehydration Discharge Plan Visit Data Chief Complaint: Vomiting Stated Complaint: N/V/D ED Provider: Alfredo Spring ED Midlevel Provider: Atiya Ko Discharge Problem: Nausea, vomiting, and diarrhea, Dehydration Patient Disposition: Being Evaluated by Hospitalist Condition: Good Forms Stand Alone Forms: My [facility] Prescriptions Prescriptions: No Action atorvastatin 20 mg tablet 20 mg PO DAILY citalopram 40 mg tablet 40 mg PO DAILY levothyroxine [Synthroid] 50 mcg tablet 50 mcg PO DAILY doxycycline hyclate 100 mg Capsule 100 mg PO BID Qty: 7 0RF amoxicillin-pot clavulanate 875-125 mg Tablet 1 tab PO BIDM Qty: 7 0RF oseltamivir 30 mg capsule 30 mg PO BID Qty: 2 0RF Referrals Referrals: Jen Luna MD [Primary Care Provider] -
[2025-07-16] MEDS: FAMOTIDINE 20MG IV PUSH 20 MG/5 ML SYR IV STA (23:36)
[2025-07-16 23:49] LABS: Hematocrit (blood only) 32.0 % (37.0-47.0); Hemoglobin 11.0 g/dL (12.0-16.0); Immature Granulocytes # (auto) 0.07 K/uL (0.01-0.20); Immature Granulocytes % (auto) 0.5 %; Mean Corpuscular Hemoglobin 30.9 pg (25.0-34.0); Mean Corpuscular Volume 89.9 fL (80.0-100.0); Platelet Count 206 K/uL (130-400); RDW Standard Deviation 41.0 fL (36.4-46.3); Red Blood Count 3.56 M/uL (4.20-5.40); White Blood Count 14.94 K/ul (4.8-10.8)
[2025-07-17 00:10] LABS: Alanine Aminotransferase 29.0 U/L (7-52); Albumin Globulin Ratio 1.5 (0.9-2); Albumin Level 4.0 gm/dl (3.4-5.0); Alkaline Phosphatase 46.0 U/L (34-104); Anion Gap 8.0 (3-11); Bilirubin,Total 0.6 mg/dl (0.2-1.0); Blood Urea Nitrogen 19.0 mg/dl (6-23); Calcium 9.6 mg/dl (8.6-10.3); Carbon Dioxide 24.0 mmol/L (21-32); Chloride 107.0 mmol/L (98-107); Creatinine Clr Calc Pharmacy 46.1 ml/min; Globulin 2.6 gm/dl (2.5-4.0); Glucose 205.0 mg/dl (70-99(Fasting)); Lipase 12.0 U/L (11-82); Magnesium 2.2 mg/dl (1.7-2.4); Potassium 3.7 mmol/L (3.5-5.1); Sodium 139.0 mmol/L (136-145); Total Protein 6.6 gm/dl (6.0-8.3)
[2025-07-17 00:40] LABS: Influenza A virus by PCR Negative (Neg); Influenza B virus by PCR Negative (Neg); SARS CoV2 RNA(COVID-19) Ceph NEGATIVE (Negative)
[2025-07-17] MEDS: OPTIRAY 320 100ml IV ONE (00:41)
--- NOTE | 2025-07-17 02:21 | CT Scan Report ---
EXAM: CT abd pelvis IV con only CLINICAL HISTORY: abd pain, v/d TECHNIQUE: Multiple contiguous axial images were obtained from the level of diaphragm to the pubis symphysis. This study was acquired after the IV administration of iodinated contrast material, given the patient's indications for the examination. If IV contrast material had not been administered, the likelihood of detecting abnormalities relevant to the patient's condition would have been substantially decreased. Coronal and sagittal reformatted images were generated and reviewed to improve anatomic localization and optimize lesion detection. CT scan was performed according to ALARA (as low as reasonably achievable). COMPARISON: CT, 09/30/2024 19:34:09 EYEGLASS MAKER FINDINGS: The visualized lung bases are clear. ABDOMEN/PELVIS: The liver is normal in size and attenuation. No focal liver lesions are seen. There is no intra or extrahepatic biliary ductal dilatation. Hepatic vasculature is patent. The gallbladder is unremarkable. The spleen, pancreas, and adrenal glands are unremarkable. The kidneys are normal in size and attenuation. There is no hydronephrosis or perinephric fat stranding. No renal calculi or renal masses are identified. The ureters are normal in caliber and no ureteral calculi are seen. The bladder is normal in contour. Uterus and bilateral adnexa are unremarkable. Mild apparent wall thickening seen in sigmoid and descending colon. Redundant large bowel with cecum seen in left anterior abdomen. No evidence of appendicitis. No adenopathy or fluid collections are seen. The aorta is normal in caliber. No aggressive appearing osseous lesions are identified. IMPRESSION: 1. Mild apparent wall thickening seen in sigmoid and descending colon. - Possibly due to collapse lumen vs early changes of colitis. Not seen in prior scan. Advised clinical correlation. 2. No any other intra-abdominal pathology detected. Electronically signed by Shyam Tavera 07-17-2025 02:21 AM
--- NOTE | 2025-07-17 02:27 | Emergency Department Note ---
ED Visit Note I was consulted in regards to the patient's presentation and plan of care by the Advanced Practice Provider. I engaged in a detailed/meaningful discussion with the Advanced Practice Provider in regards to this patient's workup and plan of care. I performed a substantiative portion of the medical decision making following discussion with the Advanced Practice Provider. Please see the Advanced Practice Provider's separate documentation for full details of the patient's visit. I agree with the assessment and plan of Marie Ko PA-C. Alfredo Spring, DO Emergency Medicine .
--- NOTE | 2025-07-17 02:38 | History & Physical Report ---
Date of Service July 17, 2025 Assessment & Plan (1) Colitis: Plan: Assessment and plan below following discussion of case with ED provider and reviewing patient history/pertinent normal/abnormal diagnostic test results. Colitis Possibly viral Patient nontoxic hyperlipidemia, on statin Rx chronic anemia (baseline hemoglobin of 11), hemoglobin at baseline hypothyroidism, euthyroid as of recent outpatient TSH Hyperglycemia rule out DM past tobacco abuse OBS Admit to medical Supportive management for possible viral colitis Stool CS, stool C. difficile Check hemoglobin A1c DVT prophylaxis per Lovenox subcu Full code Text document was generated using [employer] voice recognition software. It may contain grammatical or spelling errors. Kindly contact undersigned for clarification of any documentation item in question. History of Present Illness Chief Complaint: Nausea, vomiting, diarrhea Primary Care Provider: Jen Luna MD History obtained from patient, and records. Medical history significant for hyperlipidemia, chronic anemia (baseline hemoglobin of 11), hypothyroidism, mood disorder, past tobacco abuse. 1 day history of nausea, vomiting, watery diarrhea. No abdominal pain, no chest pain, no SOB. No fever, no chills. Not sure about sick contacts. No recent antibiotic Rx or out-of-town travel. 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 Allergies Allergy/AdvReac Type Severity Reaction Status Date / Time No Known Allergies Allergy Verified 07/17/25 02:58 Home Medications Medication Instructions Recorded Confirmed Type atorvastatin 20 mg tablet 20 mg PO DAILY 07/08/21 07/17/25 History citalopram 40 mg tablet 40 mg PO DAILY 07/08/21 07/17/25 History levothyroxine 50 mcg tablet 50 mcg PO DAILYBB 07/08/21 07/17/25 History (Synthroid) bupropion HCl 150 mg 24 hr tablet, 150 mg PO QAM 07/17/25 07/17/25 History extended release cholecalciferol (vitamin D3) 50 50 mcg PO DAILY 07/17/25 07/17/25 History mcg (2,000 unit) tablet Past Med/Surg History Problem List (Updated 07/17/25 @ 07:36 by Bryan Reese MD) Colitis Dehydration (Acute) Nausea, vomiting, and diarrhea (Acute) Vasovagal near syncope PVCs (premature ventricular contractions) Influenza A Fall (Acute) Contusion of face (Acute) Syncope (Acute) Medical History Hypothyroidism Hyperlipidemia Family History Other Family history non-contributory Social History Smoking Status: Never smoker Hx Alcohol Use: Yes Alcohol type: wine Hx Substance Use: No Preferred Language: Nepalese Communication Ability: Impaired Gear Machinist Required: No Beliefs That Will Affect Care: None Current Living Situation: Spouse Feels Safe at Home: Yes Assistive Devices: Glasses Review of Systems Review of Systems: As per HPI, all other systems reviewed and negative Physical Exam Physical Exam: GENERAL: Slightly uncomfortable, pleasant, no respiratory distress SKIN: Normal color, warm HEENT: [place] palpebral conjunctivae, no ptosis, dry buccal mucosa NECK : Supple, no tenderness CHEST : CTA, no tenderness HEART : RRR, no obvious murmurs ABDOMEN: Some distention, nontender EXTREMITIES : No LE swelling/tenderness, palpable pulses, no other conspicuous deformities noted NEUROLOGIC : Coherent, no facial asymmetry, no other gross focality Results & Data Results & Data Vital Signs (Past 12 Hours) Vital Signs Temp Pulse Resp BP Pulse Ox O2 Del Method 07/17/25 02:00 62 21 117/59 L 96 07/17/25 01:00 71 16 124/61 100 07/17/25 00:30 68 30 H 07/17/25 00:21 61 26 H 100 07/16/25 23:43 64 07/16/25 23:27 36.4 C 73 18 140/47 L 98 Room Air Laboratory Results Laboratory Results WBC 14.94 K/ul (4.8-10.8) H 07/16/25 23:30 RBC 3.56 M/uL (4.20-5.40) L 07/16/25 23:30 Hgb 11.0 g/dL (12.0-16.0) L 07/16/25 23:30 Hct 32.0 % (37.0-47.0) L 07/16/25 23:30 MCV 89.9 fL (80.0-100.0) 07/16/25 23:30 MCH 30.9 pg (25.0-34.0) 07/16/25 23: MCHC 34.4 g/dL (32.0-36.0) 07/16/25 23:30 RDW Std Deviation 41.0 fL (36.4-46.3) 07/16/25 23: RDW Coeff of Jazmin 12.5 % (11.5-14.5) 07/16/25 23: Plt Count 206 K/uL (130-400) 07/16/25 23: MPV 10.5 fL (9.4-12.4) 07/16/25 23: Immature Gran % (Auto) 0.5 % 07/16/25 23: Neut % (Auto) 79.6 % 07/16/25 23:30 Lymph % (Auto) 12.5 % 07/16/25 23:30 [place] % (Auto) 5.7 % 07/16/25 23: Eos % (Auto) 1.3 % 07/16/25 23:30 Baso % (Auto) 0.4 % 07/16/25 23:30 Neut # (Auto) 11.89 K/uL (1.40-6.50) H 07/16/25 23:30 Lymph # (Auto) 1.87 K/uL (1.20-3.40) 07/16/25 23:30 [place]kins # (Auto) 0.85 K/uL (0.11-0.59) H 07/16/25 23:30 Eos # (Auto) 0.20 K/uL (0.00-0.50) 07/16/25 23:30 Baso # (Auto) 0.06 K/uL (0.00-0.20) 07/16/25 23:30 Immature Gran # (Auto) 0.07 K/uL (0.01-0.20) 07/16/25 23:30 Sodium 139 mmol/L (136-145) 07/16/25 23:30 Potassium 3.7 mmol/L (3.5-5.1) 07/16/25 23:30 Chloride 107 mmol/L (98-107) 07/16/25 23:30 Carbon Dioxide 24 mmol/L (21-32) 07/16/25 23:30 Anion Gap 8 (3-11) 07/16/25 23:30 BUN 19 mg/dl (6-23) 07/16/25 23:30 Creatinine 0.91 mg/dl (0.6-1.2) 07/16/25 23:30 Est Cr Clr Drug Dosing 46.1 ml/min 07/16/25 23:30 eGFR 67.45 07/16/25 23:30 BUN/Creatinine Ratio 20.9 (10-20) H 07/16/25 23:30 Glucose 205 mg/dl (70-99(Fasting)) H 07/16/25 23:30 Calcium 9.6 mg/dl (8.6-10.3) 07/16/25 23:30 Magnesium 2.2 mg/dl (1.7-2.4) 07/16/25 23:30 Total Bilirubin 0.6 mg/dl (0.2-1.0) 07/16/25 23:30 AST 30 U/L (13-39) 07/16/25 23:30 ALT 29 U/L (7-52) 07/16/25 23:30 Alkaline Phosphatase 46 U/L (34-104) 07/16/25 23:30 Troponin I High Sens 3.7 pg/ml (0-14) 07/16/25 23:30 Total Protein 6.6 gm/dl (6.0-8.3) 07/16/25 23:30 Albumin 4.0 gm/dl (3.4-5.0) 07/16/25 23:30 Globulin 2.6 gm/dl (2.5-4.0) 07/16/25 23:30 Albumin/Globulin Ratio 1.5 (0.9-2) 07/16/25 23:30 Lipase 12 U/L (11-82) 07/16/25 23:30 SARS-CoV-2 (PCR) NEGATIVE (Negative) 07/16/25 23:52 Influenza Type A (PCR) Negative (Neg) 07/16/25 23:52 Influenza Type B (PCR) Negative (Neg) 07/16/25 23:52 RSV (RT-PCR) Negative (Neg) 07/16/25 23:52 Impressions Abdomen/Pelvis CT 07/16/25 23:30 EXAM: CT abd pelvis IV con only CLINICAL HISTORY: abd pain, v/d TECHNIQUE: Multiple contiguous axial images were obtained from the level of diaphragm to the pubis symphysis. This study was acquired after the IV administration of iodinated contrast material, given the patient's indications for the examination. If IV contrast material had not been administered, the likelihood of detecting abnormalities relevant to the patient's condition would have been substantially decreased. Coronal and sagittal reformatted images were generated and reviewed to improve anatomic localization and optimize lesion detection. CT scan was performed according to ALARA (as low as reasonably achievable). COMPARISON: CT, 09/30/2024 19:34:09 NUT THREADER FINDINGS: The visualized lung bases are clear. ABDOMEN/PELVIS: The liver is normal in size and attenuation. No focal liver lesions are seen. There is no intra or extrahepatic biliary ductal dilatation. Hepatic vasculature is patent. The gallbladder is unremarkable. The spleen, pancreas, and adrenal glands are unremarkable. The kidneys are normal in size and attenuation. There is no hydronephrosis or perinephric fat stranding. No renal calculi or renal masses are identified. The ureters are normal in caliber and no ureteral calculi are seen. The bladder is normal in contour. Uterus and bilateral adnexa are unremarkable. Mild apparent wall thickening seen in sigmoid and descending colon. Redundant large bowel with cecum seen in left anterior abdomen. No evidence of appendicitis. No adenopathy or fluid collections are seen. The aorta is normal in caliber. No aggressive appearing osseous lesions are identified. IMPRESSION: 1. Mild apparent wall thickening seen in sigmoid and descending colon. - Possibly due to collapse lumen vs early changes of colitis. Not seen in prior scan. Advised clinical correlation. 2. No any other intra-abdominal pathology detected. Electronically signed by Shyam Tavera 07-17-2025 02:21 AM Diagnostic Findings EKG as per my interpretation :Rate 70, NSR, normal axis, T wave flattening inferior leads
[2025-07-17] MEDS ORDERED: ACETAMINOPHEN 325 MG TAB PO PRN (02:53)
[2025-07-17] MEDS ORDERED: PROMETHAZINE 6.25 MG/50.25 ML BAG IV PRN (02:53)
[2025-07-17] MEDS: PROMETHAZINE 6.25 MG/50.25 ML BAG IV STA (03:11)
[2025-07-17] MEDS: NSS + 20MEQ KCL 20 MEQ/1,000 ML BAG IV ONE (03:58)
[2025-07-17 04:09] VITALS: RESP 16
[2025-07-17] MEDS: LEVOTHYROXINE SODIUM 50 MCG TABLET PO SCH (05:18)
[2025-07-17 06:28] LABS: Hematocrit (blood only) 27.5 % (37.0-47.0); Hemoglobin 9.3 g/dL (12.0-16.0); Immature Granulocytes # (auto) 0.04 K/uL (0.01-0.20); Immature Granulocytes % (auto) 0.4 %; Mean Corpuscular Hemoglobin 30.7 pg (25.0-34.0); Mean Corpuscular Volume 90.8 fL (80.0-100.0); Platelet Count 172 K/uL (130-400); RDW Standard Deviation 41.1 fL (36.4-46.3); Red Blood Count 3.03 M/uL (4.20-5.40); White Blood Count 9.99 K/ul (4.8-10.8)
[2025-07-17 06:32] LABS: Hemoglobin A1C 5.9 % (4.5-5.6)
[2025-07-17 06:47] LABS: Anion Gap 4.0 (3-11); Blood Urea Nitrogen 14.0 mg/dl (6-23); Calcium 8.5 mg/dl (8.6-10.3); Carbon Dioxide 25.0 mmol/L (21-32); Chloride 112.0 mmol/L (98-107); Creatinine Clr Calc Pharmacy 54.5 ml/min; Glucose 107.0 mg/dl (70-99(Fasting)); Potassium 4.0 mmol/L (3.5-5.1); Sodium 141.0 mmol/L (136-145)
[2025-07-17 07:37] VITALS: BP 109/55; PULSE 69; TEMP 98.4; O2SAT 97
[2025-07-17 08:17] LABS: Appearance Urine Clear (Clear); Glucose Urine UA Negative (Negative)
[2025-07-17] MEDS: ATORVASTATIN 20 MG TAB PO SCH (09:01)
[2025-07-17] MEDS: CHOLECALCIFEROL 25 MCG (1000 UNITS) TAB PO SCH (09:01)
[2025-07-17] MEDS: ENOXAPARIN INJ 30 MG/0.3 ML SYR SQ SCH (09:01)
[2025-07-17] MEDS: CITALOPRAM 40 MG TAB PO SCH (09:01)
--- NOTE | 2025-07-17 10:03 | Hospitalist Progress Note ---
Date of Service July 17, 2025 Assessment & Plan (1) Colitis: (2) Nausea, vomiting, and diarrhea: Plan Ms. Waller is a 70 yr old F who has a significant PMH of hypothyroidism, senile osteoporosis and depression who presented to ED with acute onset of n/v/d. --CT a/p: Mild apparent wall thickening seen in sigmoid and descending colon. - Possibly due to collapse lumen vs early changes of colitis. Not seen in prior scan. Advised clinical correlation. On admission pt was febrile, wbc 14.94k Pt admitted to [facility] for observation of viral GI sx. She has been unable to provide a stool sample thus far. Sx have improved. She is on clear liquid diet She still has some mild abd discomfort Continue supportive care. Once she is tolerating orals we discontinue IVF. Currently she is not on any antibiotics and wbc has improved, suspect likely reactive. She is non toxic appearing She is scheduled for C scope on 08/06 at [facility] for routine surveillance #HLD: continue statin #Hypothyroidism: continue levothyroxine #Chronic anemia: baseline 11, pt on iron supplement for a few months will obtain Iron panel as pt may need to consider IV venofer #Pre diabetes: a1c 5.9 DVT prophylaxis: Lovenox Full code PCP: Jen Luna Dispo: admitted to [email or web address] on obs likely d/c later today or tomorrow I spent a total of 45 minutes coordinating, documenting and providing care for this patient excluding time spent in the performance of separately billed ser vices or time spent by another provider/QHP. This is not a billable note as pt was admitted after 00:00 on 07/17. Admission and Anticipated Discharge Date Admission Date: July 17, 2025 Supervising Physician Co-Signing Physician Notes Attending addendum: Patient was seen and examined in medical telemetry She was admitted with nausea and vomiting and diarrheaall of the conditions have resolved Noted to have mild diverticulitis On examination Lying in bed without any acute distress Remains hemodynamically stable and afebrile Chest was clear to auscultate bilaterally HeartS1-S2, regular Abdomenbenign Extremities no edema Her admission labs, imaging studies noted Nonspecific colitis with nausea vomiting and diarrhearesolved She wants to go homeshe has been tolerating diet and without any other significant symptoms. She will be discharged home on oral Augmentin for a total of 10 days as a precaution. Agree with assessment and plan as outlined above by Francisca Anderson PA-C and take the full responsibility of care in the hospital Total time taken to see the patient, taking history, examining him, follow labs and planning of care was [address] Eddie Steen Subjective Pt seen and examined in room 286-2. F/U Gastroenteritis. Pt had abrupt onset of N/V/D last night that prompted ER visit. No sick contacts. Her and her ate similar foods. Prior hx of food poisoning which feels similar. Denies f/c/s, chest pain, sob, abd pain. She is scheduled for c scope in 2-3 weeks for her 3 yr follow up given hx of polyps. No hx of colitis in the past. Review of Systems Review of Systems: All systems reviewed & are unremarkable except as noted in HPI & below Physical Exam Physical Exam: Gen: WD/WN, NAD, A&O x3 HEENT: Normocephalic, atraumatic, conjunctivae moist, sclerae anicteric, mucous membranes moist. Lung: Clear to Auscultation bilaterally, no wheezes/rales/rhonchi Heart: Regular rate, regular rhythm, no murmurs, rubs, or gallops Abdomen: Soft, NT, ND +BS x 4 Extremities: No edema Skin: Warm, no rash, negative turgor. Results & Data Results & Data Vital Signs (Past 12 Hours) Vital Signs Temp Pulse Pulse Resp BP BP Pulse Ox 07/17/25 07:36 36.9 C 69 16 109/55 L 97 07/17/25 04:05 36.6 C 55 L 16 112/54 L 98 07/17/25 03:00 60 15 124/64 98 07/17/25 02:00 62 21 117/59 L 96 07/17/25 01:00 71 16 124/61 100 07/17/25 00:30 68 30 H 07/17/25 00:21 61 26 H 100 07/16/25 23:43 64 07/16/25 23:27 36.4 C 73 18 140/47 L 98 O2 Del Method 07/17/25 07:36 Room Air 07/17/25 04:05 Room Air 07/17/25 03:00 Room Air 07/17/25 02:00 07/17/25 01:00 07/17/25 00:30 07/17/25 00:21 07/16/25 23:43 07/16/25 23:27 Room Air Laboratory Results Short CBC 07/16/25 07/17/25 Range/Units 23:30 05:39 WBC 14.94 H 9.99 (4.8-10.8) K/ul Hgb 11.0 L 9.3 L (12.0-16.0) g/dL Hct 32.0 L 27.5 L (37.0-47.0) % Plt Count 206 172 (130-400) K/uL BMP 07/16/25 07/17/25 23:30 05:39 Sodium 139 141 Potassium 3.7 4.0 Chloride 107 112 H Carbon Dioxide 24 25 BUN 19 14 Creatinine 0.91 0.77 Glucose 205 H 107 H Calcium 9.6 8.5 L Liver Function 07/16/25 Range/Units 23:30 Total Bilirubin 0.6 (0.2-1.0) mg/dl AST 30 (13-39) U/L ALT 29 (7-52) U/L Alkaline Phosphatase 46 (34-104) U/L Albumin 4.0 (3.4-5.0) gm/dl Urine 07/17/25 Range/Units 08:00 Urine Color Yellow Urine Appearance Clear (Clear) Urine pH 6.0 (4.5-7.5) Ur Specific Moira > 1.045 H (1.000-1.030) Urine Protein Negative (Negative) Urine Glucose (UA) Negative (Negative) Medications Administered Current Inpatient Medications Acetaminophen (Acetaminophen 325 Mg Tab) 650 mg PO QID PRN PRN Reason: pain/fever Stop: 08/16/25 02:52 Atorvastatin Calcium (Atorvastatin 20 Mg Tab) 20 mg PO DAILY [facility] Stop: 08/16/25 08:59 Last Admin: 07/17/25 09:01 Dose: 20 mg Bupropion HCl (Bupropion Xl 150 Mg Tabcr) 150 mg PO QAM JASWANT Stop: 08/16/25 08:59 Last Admin: 07/17/25 09:01 Dose: 150 mg Citalopram Hydrobromide (Citalopram 40 Mg Tab) 40 mg PO DAILY JASWANT Stop: 08/16/25 08:59 Last Admin: 07/17/25 09:01 Dose: 40 mg Enoxaparin Sodium (Enoxaparin Inj 30 Mg/0.3 Ml Syr) 30 mg SQ QAM [facility] Stop: 08/16/25 08:59 Last Admin: 07/17/25 09:01 Dose: 30 mg Promethazine HCl (Phenergan) 6.25 mg in 50.25 mls @ 201 mls/hr IV Q6H PRN PRN Reason: Nausea And Vomiting Stop: 08/16/25 02:52 Potassium Chloride/Sodium Chloride (Normal Saline W/20 Meq Kcl) 20 meq in 1,000 mls @ 100 mls/hr IV .Q10H ONE Stop: 07/17/25 12:54 Last Admin: 07/17/25 03:58 Dose: 100 mls/hr Levothyroxine Sodium (Levothyroxine Sodium 50 Mcg Tablet) 50 mcg PO DAILYBB [facility] Stop: 08/16/25 06:29 Last Admin: 07/17/25 05:18 Dose: 50 mcg Vitamin D (Cholecalciferol 25 Mcg (1000 Units) Tab) 50 mcg PO DAILY [facility] Stop: 08/16/25 08:59 Last Admin: 07/17/25 09:01 Dose: 50 mcg
[2025-07-17 10:08] LABS: Ferritin 70.7 ng/ml (8-388)
[2025-07-17 10:14] LABS: Folate (Folic Acid),Ser orPlas 12.1 ng/ml (>5.38)
[2025-07-17 10:15] LABS: Vitamin B12 151.0 pg/ml (180-914)
[2025-07-17 10:44] LABS: Iron 47.0 mcg/dl (35-150); Total Iron Binding Cap Calc 286.0 mcg/dl (250-450); Transferrin 204.0 mg/dl (200-360); Transferrin (FE) Percent Satur 16.0 % (15-50)
--- NOTE | 2025-07-17 13:43 | Discharge Summary ---
Discharge Summary Date of Service July 17, 2025 Principal Dx & Hospital Course #1 = Principal Diagnosis (1) Colitis: (2) Nausea, vomiting, and diarrhea: Plan Ms. Waller is a 70 yr old F who has a significant PMH of hypothyroidism, senile osteoporosis and depression who presented to ED with acute onset of n/v/d. Admitting CT abd/pelvis revealed mild apparent wall thickening seen in sigmoid and descending colon. - Possibly due to collapse lumen vs early changes of colitis. Not seen in prior scan. On admission pt was febrile, wbc 14.94k. Pt admitted to [facility] for observation of viral GI sx. She has been unable to pr ovide a stool sample thus far. Sx have improved. She is on clear liquid diet and tolerating well. Pt wishes to recover at home despite not being able to provide stool sample. She is tolerating liquids and diet. Pt is educated regarding possibility of early colitis. She will be discharged on a course of oral augmentin to complete for 7 days. She is scheduled for C scope on 08/[address] [facility] for routine surveillance. She is encouraged to discuss with surgeon if this needs to be delayed given possible colitis. Her hgb was noted to be below baseline at 9.3. An anemia panel was performed. Her Iron/Ferritin was adequate. She is encouraged to continue oral supplementation. Her Vitamin B12 is low at 151 pg/ml so this will be supplemented. SHe is encouraged to follow up wit PCP regarding anemia. At discharge she is tolerating diet and no longer has GI sx. She will be prescribed 1 week course of augmentin. Notes For Next Care Provider Please repeat b12 level in 12 weeks. Medication Changes From Visit Augmentin 875mg one tablet by mouth twice daily. Next dose due at 10 pm. on 07/17/25. Vitamin B12 1000mcg daily for low vitamin b 12. Continue all other medications as prescribed. Admission HPI Per Admitting Provider History obtained from patient, and records. Medical history significant for hyperlipidemia, chronic anemia (baseline hemoglobin of 11), hypothyroidism, mood disorder, past tobacco abuse. 1 day history of nausea, vomiting, watery diarrhea. No abdominal pain, no chest pain, no SOB. No fever, no chills. Not sure about sick contacts. No recent antibiotic Rx or out-of-town travel. 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 Admission Exam Per Admitting Provider GENERAL: Slightly uncomfortable, pleasant, no respiratory distress SKIN: Normal color, warm HEENT: Cornucopia palpebral conjunctivae, no ptosis, dry buccal mucosa NECK : Supple, no tenderness CHEST : CTA, no tenderness HEART : RRR, no obvious murmurs ABDOMEN: Some distention, nontender EXTREMITIES : No LE swelling/tenderness, palpable pulses, no other conspicuous deformities noted NEUROLOGIC : Coherent, no facial asymmetry, no other gross focality Discharge Exam Gen: WD/WN, NAD, A&O x3 HEENT: Normocephalic, atraumatic, conjunctivae moist, sclerae anicteric, mucous membranes moist. Lung: Clear to Auscultation bilaterally, no wheezes/rales/rhonchi Heart: Regular rate, regular rhythm, no murmurs, rubs, or gallops Abdomen: Soft, NT, ND +BS x 4 Extremities: No edema Skin: Warm, no rash, negative turgor. Updated Medication List Medication Instructions Recorded Confirmed Type atorvastatin 20 mg tablet 20 mg PO DAILY 07/08/21 07/17/25 History citalopram 40 mg tablet 40 mg PO DAILY 07/08/21 07/17/25 History levothyroxine 50 mcg tablet 50 mcg PO DAILYBB 07/08/21 07/17/25 History (Synthroid) amoxicillin 875 mg-potassium 1 tab PO Q12H #14 tabs 07/17/25 Rx clavulanate 125 mg tablet bupropion HCl 150 mg 24 hr tablet, 150 mg PO QAM 07/17/25 07/17/25 History extended release cholecalciferol (vitamin D3) 50 50 mcg PO DAILY 07/17/25 07/17/25 History mcg (2,000 unit) tablet cyanocobalamin (vitamin B-12) 1,000 mcg PO DAILY #30 caps 07/17/25 Rx 1,000 mcg capsule Hospital Stay Data Consultations 07/17/25 02:25 ED Decision to Admit Stat Diagnostic Imagining Performed 07/16/25 23:30 CT abd pelvis IV con only Stat Pending Results Patient Have Any Pending Studies at Discharge: No Discharge Instructions Given to Patient (Per Discharging Provider) MEDICATION CHANGES: Augmentin 875mg one tablet by mouth twice daily. Next dose due at 10 pm. on 07/17/25. Vitamin B12 1000mcg daily for low vitamin b 12. Continue all other medications as prescribed. SUMMARY OF TEST RESULTS: You were admitted to the hospital secondary to nausea, vomiting and diarrhea. CAT scan imaging was concerning for a possible early developing colitis, or inflammation of the colon. PENDING TEST RESULTS: None RECOMMENDATIONS FOR FOLLOW-UP: Please Follow-up with your primary care provider as scheduled. Please complete antibiotics in their entirety. Recommend taking a daily probiotic while on antibiotic therapy. This can be in the form of a tablet or yogurt. Advance your diet as tolerated. I recommend sticking to things like bananas, toast, rice and applesauce until you feel back to baseline. Stay well hydrated. You are scheduled for a colonoscopy after the new year. Please alert your surgeon you were recently admitted for colitis as they may wish to delay this procedure. Your hemoglobin is low around ~ 9. We checked iron levels and these were all within normal range. Please continue taking your iron supplement. Your Vitamin B12 level was also low. This can contribute to anemia. Please take 1,000mcg of vitamin b12 daily. Please have your primary care provider repeat this in 12 weeks. OTHER INSTRUCTIONS: Seek medical attention if you have: * temperature above 101 * chest pain or trouble breathing * abdominal pain, nausea, vomiting * diarrhea, dark stools or bloody stools * any unanswered questions or concerns Call 911 if symptoms are severe. Please take good care of yourself. It has been a pleasure taking care of you. Please take care of yourself. If you have any questions regarding your recent hospitalization please contact [facility] and request [facility] @ [phone]. Lisa Anderson PA-C Total Time Total Time Spent Total Time Spent (In Minutes): 45 minutes Supervising Physician Co-Signing Physician Notes Attending addendum: Patient was seen and examined in medical telemetry She was admitted with nausea and vomiting and diarrheaall of the conditions have resolved Noted to have mild diverticulitis On examination Lying in bed without any acute distress Remains hemodynamically stable and afebrile Chest was clear to auscultate bilaterally HeartS1-S2, regular Abdomenbenign Extremities no edema Her admission labs, imaging studies noted Nonspecific colitis with nausea vomiting and diarrhearesolved She wants to go homeshe has been tolerating diet and without any other s ignificant symptoms. She will be discharged home on oral Augmentin for a total of 10 days as a precaution. Agree with assessment and plan as outlined above by Francisca Anderson PA-C and take the full responsibility of care in the hospital Total time taken to see the patient, taking history, examining him, follow labs and planning of care was [address] Eddie Steen
[2025-07-17] MEDS: AMOXICILLIN/CLAVULANATE 875 MG TAB PO ONE (13:46)
--- NOTE | 2025-07-18 06:04 | Electrocardiogram Report ---
Test Reason : Blood Pressure : */* mmHG Vent. Rate : 70 BPM Atrial Rate : 70 BPM P-R Int : 142 ms QRS Dur : 94 ms QT Int : 426 ms P-R-T Axes : 75 55 47 degrees QTcB Int : 460 ms Normal sinus rhythm Normal ECG When compared with ECG of 02-Oct-2024 06:02, Premature ventricular complexes are no longer Present Confirmed by Juan F Greenfield ([id number]) on 07/18/2025 6:04:02 AM Referred By: REFERRED SELF Confirmed By: Juan F Greenfield
== END 2025-07-17 14:34 | disposition home or self-care (01) ==
LOC: 2N 23:22 → ED 23:22 → 2N 07-17 03:15
DX: F39 Unspecified mood [affective] disorder; Z79.899 Other long term (current) drug therapy; K52.9 Noninfective gastroenteritis and colitis, unspecified; D64.9 Anemia, unspecified; Z79.890 Hormone replacement therapy; E78.5 Hyperlipidemia, unspecified; R73.03 Prediabetes; Z87.891 Personal history of nicotine dependence; E86.0 Dehydration; E03.9 Hypothyroidism, unspecified